=== PATIENT | male | born 2000 | race African-American/Black ===

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

== ENCOUNTER 2019-02-05 11:20 | Outpatient (RCR) | payer MEDICAID, OTHER, SELFPAY ==
[2019-01-13 15:55] LABS: Prothrombin Time Fingerstick 15.2 SEC (11.9-14.4)
[2019-02-05 11:31] LABS: Prothrombin Time Fingerstick 12.2 SEC (11.9-14.4)
== END 2019-02-05 13:00 | disposition home or self-care (01) ==
LOC: LAB 11:20
PROVIDERS: Family Provider Pediatrics; PCP Pediatrics; Referring Provider Pediatrics Pediatric Cardiology; Visit Provider Pediatrics Pediatric Cardiology
DX: Z95.4 Presence of other heart-valve replacement (principal)
CPT/HCPCS: 36416; 85610

== ENCOUNTER 2019-03-06 12:44 | Outpatient (RCR) | payer MEDICAID, OTHER, SELFPAY ==
[2019-02-12 12:15] LABS: Prothrombin Time Fingerstick 20.3 SEC (11.9-14.4)
[2019-03-06 13:10] LABS: Prothrombin Time Fingerstick 14.2 SEC (11.9-14.4)
== END 2019-03-06 13:00 | disposition home or self-care (01) ==
LOC: LAB 12:44
PROVIDERS: Family Provider Pediatrics; PCP Pediatrics; Referring Provider Pediatrics Pediatric Cardiology; Visit Provider Pediatrics Pediatric Cardiology
DX: Z95.4 Presence of other heart-valve replacement (principal)
CPT/HCPCS: 36416; 85610

== ENCOUNTER 2019-04-04 16:24 | Outpatient (RCR) | payer MEDICAID, OTHER, SELFPAY ==
[2019-03-14 15:06] LABS: Prothrombin Time Fingerstick 29.3 SEC (11.9-14.4)
[2019-04-04 16:36] LABS: Prothrombin Time Fingerstick 24.9 SEC (11.9-14.4)
== END 2019-04-09 16:00 | disposition home or self-care (01) ==
LOC: LAB 16:24
PROVIDERS: Family Provider Pediatrics; PCP Pediatrics; Referring Provider Pediatrics Pediatric Cardiology; Visit Provider Pediatrics Pediatric Cardiology
DX: Z95.4 Presence of other heart-valve replacement (principal)
CPT/HCPCS: 36416; 85610

== ENCOUNTER 2019-04-18 16:03 | Outpatient (RCR) | payer MEDICAID, OTHER, SELFPAY | END 2019-04-18 17:00 | disposition home or self-care (01) | LOC: LAB 16:03 | PROVIDERS: Family Provider Pediatrics; PCP Pediatrics; Referring Provider Pediatrics Pediatric Cardiology; Visit Provider Pediatrics Pediatric Cardiology | DX: Z95.4 Presence of other heart-valve replacement (principal) | CPT/HCPCS: 36416; 85610 ==

== ENCOUNTER 2019-05-30 16:30 | Outpatient (RCR) | payer MEDICAID, OTHER, SELFPAY ==
[2019-05-15 15:49] LABS: Prothrombin Time Fingerstick 21.6 SEC (11.9-14.4)
[2019-05-31 07:13] LABS: Prothrombin Time Fingerstick 21.1 SEC (11.9-14.4)
== END 2019-05-30 17:00 | disposition home or self-care (01) ==
LOC: LAB 16:30
PROVIDERS: Family Provider Pediatrics; PCP Pediatrics; Referring Provider Pediatrics Pediatric Cardiology; Visit Provider Pediatrics Pediatric Cardiology
DX: Z95.4 Presence of other heart-valve replacement (principal)
CPT/HCPCS: 36416; 85610

== ENCOUNTER 2019-07-07 16:15 | Outpatient (RCR) | payer MEDICAID, OTHER, SELFPAY ==
[2019-06-16 17:24] LABS: Prothrombin Time Fingerstick 23.3 SEC (11.9-14.4)
[2019-06-30 17:25] LABS: Prothrombin Time Fingerstick 29.9 SEC (11.9-14.4)
[2019-07-07 17:20] LABS: Prothrombin Time Fingerstick 25.6 SEC (11.9-14.4)
== END 2019-07-07 18:00 | disposition home or self-care (01) ==
LOC: LAB 16:15
PROVIDERS: Family Provider Pediatrics; PCP Pediatrics; Referring Provider Pediatrics Pediatric Cardiology; Visit Provider Pediatrics Pediatric Cardiology
DX: Z95.4 Presence of other heart-valve replacement (principal)
CPT/HCPCS: 36416; 85610

== ENCOUNTER 2019-08-04 16:25 | Outpatient (RCR) | payer MEDICAID, OTHER, SELFPAY ==
[2019-07-22 08:06] LABS: Prothrombin Time Fingerstick 20.3 SEC (11.9-14.4)
[2019-08-04 16:36] LABS: Prothrombin Time Fingerstick 15.3 SEC (11.9-14.4)
== END 2019-08-04 18:00 | disposition home or self-care (01) ==
LOC: LAB 16:25
PROVIDERS: Family Provider Pediatrics; PCP Pediatrics; Referring Provider Pediatrics Pediatric Cardiology; Visit Provider Pediatrics Pediatric Cardiology
DX: Z95.4 Presence of other heart-valve replacement (principal)
CPT/HCPCS: 36416; 85610

== ENCOUNTER 2019-08-11 15:06 | Outpatient (RCR) | payer MEDICAID, OTHER, SELFPAY ==
[2019-08-11 17:09] LABS: Prothrombin Time Fingerstick 20.5 SEC (11.9-14.4)
== END 2019-08-11 18:00 | disposition home or self-care (01) ==
LOC: LAB 15:06
PROVIDERS: Family Provider Pediatrics; PCP Pediatrics; Referring Provider Pediatrics Pediatric Cardiology; Visit Provider Pediatrics Pediatric Cardiology
DX: Z95.4 Presence of other heart-valve replacement (principal)
CPT/HCPCS: 36416; 85610

== ENCOUNTER 2019-10-01 15:31 | Outpatient (RCR) | payer MEDICAID, OTHER, SELFPAY ==
[2019-09-12 16:21] LABS: Prothrombin Time Fingerstick 27.2 SEC (11.9-14.4)
[2019-10-01 17:11] LABS: Prothrombin Time Fingerstick 19.1 SEC (11.9-14.4)
[2019-10-02 10:16] LABS: Prothrombin Time Fingerstick 19.1 SEC (11.9-14.4)
== END 2019-10-01 18:00 | disposition home or self-care (01) ==
LOC: LAB 15:31
PROVIDERS: Family Provider Pediatrics; PCP Pediatrics; Referring Provider Pediatrics Pediatric Cardiology; Visit Provider Pediatrics Pediatric Cardiology
DX: Z95.4 Presence of other heart-valve replacement (principal)
CPT/HCPCS: 36416; 85610

== ENCOUNTER 2019-10-29 16:06 | Outpatient (RCR) | payer MEDICAID, OTHER, SELFPAY ==
[2019-10-15 16:36] LABS: Prothrombin Time Fingerstick 18.5 SEC (11.9-14.4)
[2019-10-29 16:21] LABS: Prothrombin Time Fingerstick 27.5 SEC (11.9-14.4)
== END 2019-10-29 18:00 | disposition home or self-care (01) ==
LOC: LAB 16:06
PROVIDERS: Family Provider Pediatrics; PCP Pediatrics; Referring Provider Pediatrics Pediatric Cardiology; Visit Provider Pediatrics Pediatric Cardiology
DX: Z95.4 Presence of other heart-valve replacement (principal)
CPT/HCPCS: 36416; 85610

== ENCOUNTER 2019-11-28 15:36 | Outpatient (RCR) | payer MEDICAID, OTHER, SELFPAY ==
[2019-11-28 15:51] LABS: Prothrombin Time Fingerstick 22.3 SEC (11.9-14.4)
== END 2019-11-28 18:00 | disposition home or self-care (01) ==
LOC: LAB 15:36
PROVIDERS: Family Provider Pediatrics; PCP Pediatrics; Referring Provider Pediatrics Pediatric Cardiology; Visit Provider Pediatrics Pediatric Cardiology
DX: Z95.4 Presence of other heart-valve replacement (principal)
CPT/HCPCS: 36416; 85610

== ENCOUNTER 2020-01-30 16:05 | Outpatient (RCR) | payer MEDICAID, SELFPAY ==
[2020-01-30 17:11] LABS: Prothrombin Time Fingerstick 20.3 SEC (11.9-14.4)
== END 2020-01-30 18:00 | disposition home or self-care (01) ==
LOC: LAB 16:05
PROVIDERS: Family Provider Pediatrics; PCP Pediatrics; Referring Provider Pediatrics Pediatric Cardiology; Visit Provider Pediatrics Pediatric Cardiology
DX: Z95.4 Presence of other heart-valve replacement (principal)
CPT/HCPCS: 36416; 85610

== ENCOUNTER 2020-03-08 14:56 | Outpatient (RCR) | payer MEDICAID, OTHER, SELFPAY ==
[2020-03-09 09:06] LABS: Prothrombin Time Fingerstick 32.8 SEC (11.9-14.4)
== END 2020-03-08 18:00 | disposition home or self-care (01) ==
LOC: LAB 14:56
PROVIDERS: Family Provider Pediatrics; PCP Pediatrics; Referring Provider Pediatrics Pediatric Cardiology; Visit Provider Pediatrics Pediatric Cardiology
DX: Z95.4 Presence of other heart-valve replacement (principal)
CPT/HCPCS: 36416; 85610

== ENCOUNTER 2020-04-01 14:25 | Outpatient (RCR) | payer MEDICAID, OTHER, SELFPAY ==
[2020-03-15 15:10] LABS: Prothrombin Time Fingerstick 33.1 SEC (11.9-14.4)
[2020-03-22 14:31] LABS: Prothrombin Time Fingerstick 33.7 SEC (11.9-14.4)
[2020-04-01 14:56] LABS: Prothrombin Time Fingerstick 20.9 SEC (11.9-14.4)
== END 2020-04-01 18:00 | disposition home or self-care (01) ==
LOC: LAB 14:25
PROVIDERS: Family Provider Pediatrics; PCP Pediatrics; Referring Provider Pediatrics Pediatric Cardiology; Visit Provider Pediatrics Pediatric Cardiology
DX: Z95.4 Presence of other heart-valve replacement (principal)
CPT/HCPCS: 36416; 85610

== ENCOUNTER 2020-04-14 15:17 | Outpatient (RCR) | payer MEDICAID, SELFPAY ==
[2020-04-14 16:10] LABS: Prothrombin Time Fingerstick 24.7 SEC (11.9-14.4)
== END 2020-05-10 18:00 | disposition home or self-care (01) ==
LOC: LAB 15:17
PROVIDERS: Family Provider Pediatrics; PCP Pediatrics; Referring Provider Pediatrics Pediatric Cardiology; Visit Provider Pediatrics Pediatric Cardiology
DX: Z95.4 Presence of other heart-valve replacement (principal)
CPT/HCPCS: 36416; 85610

== ENCOUNTER 2020-06-02 15:59 | Outpatient (RCR) | payer MEDICAID, SELFPAY ==
[2020-05-11 10:06] LABS: Prothrombin Time Fingerstick 26.4 SEC (11.9-14.4)
[2020-06-02 16:11] LABS: Prothrombin Time Fingerstick 19.9 SEC (11.9-14.4)
== END 2020-06-02 18:00 | disposition home or self-care (01) ==
LOC: LAB 15:59
PROVIDERS: Family Provider Pediatrics; PCP Pediatrics; Referring Provider Pediatrics Pediatric Cardiology; Visit Provider Pediatrics Pediatric Cardiology
DX: Z95.4 Presence of other heart-valve replacement (principal)
CPT/HCPCS: 36416; 85610

== ENCOUNTER 2020-06-23 16:13 | Outpatient (RCR) | payer MEDICAID, SELFPAY ==
[2020-06-24 09:46] LABS: Prothrombin Time Fingerstick 27.1 SEC (11.9-14.4)
== END 2020-06-23 18:00 | disposition home or self-care (01) ==
LOC: LAB 16:13
PROVIDERS: Family Provider Pediatrics; PCP Pediatrics; Referring Provider Pediatrics Pediatric Cardiology; Visit Provider Pediatrics Pediatric Cardiology
DX: Z95.4 Presence of other heart-valve replacement (principal)
CPT/HCPCS: 36416; 85610

== ENCOUNTER 2020-07-27 16:15 | Outpatient (RCR) | payer MEDICAID, SELFPAY ==
[2020-07-27 17:11] LABS: Prothrombin Time Fingerstick 34.5 SEC (11.9-14.4)
== END 2020-07-27 18:00 | disposition home or self-care (01) ==
LOC: LAB 16:15
PROVIDERS: Family Provider Pediatrics; PCP Pediatrics; Referring Provider Pediatrics Pediatric Cardiology; Visit Provider Pediatrics Pediatric Cardiology
DX: Z95.4 Presence of other heart-valve replacement (principal)
CPT/HCPCS: 36416; 85610

== ENCOUNTER 2020-08-23 14:53 | Outpatient (RCR) | payer MEDICAID, SELFPAY ==
[2020-08-23 15:11] LABS: Prothrombin Time Fingerstick 23.6 SEC (11.9-14.4)
== END 2020-08-23 18:00 | disposition home or self-care (01) ==
LOC: LAB 14:53
PROVIDERS: Family Provider Pediatrics; PCP Pediatrics; Referring Provider Pediatrics Pediatric Cardiology; Visit Provider Pediatrics Pediatric Cardiology
DX: Z95.4 Presence of other heart-valve replacement (principal)
CPT/HCPCS: 36416; 85610

== ENCOUNTER 2020-09-29 14:17 | Outpatient (RCR) | payer MEDICAID, SELFPAY ==
[2020-09-14 12:45] LABS: Prothrombin Time Fingerstick 40.6 SEC (11.9-14.4)
[2020-09-23 15:21] LABS: Prothrombin Time Fingerstick 33.3 SEC (11.9-14.4)
[2020-09-29 14:31] LABS: Prothrombin Time Fingerstick 34.9 SEC (11.9-14.4)
== END 2020-09-29 18:00 | disposition home or self-care (01) ==
LOC: LAB 14:17
PROVIDERS: Family Provider Pediatrics; PCP Pediatrics; Referring Provider Pediatrics Pediatric Cardiology; Visit Provider Pediatrics Pediatric Cardiology
DX: Z95.4 Presence of other heart-valve replacement (principal)
CPT/HCPCS: 36415; 36416; 85610

== ENCOUNTER 2020-11-04 15:29 | Outpatient (RCR) | payer MEDICAID, SELFPAY ==
[2020-10-14 12:26] LABS: Prothrombin Time Fingerstick 22.4 SEC (11.9-14.4)
[2020-11-04 15:40] LABS: Prothrombin Time Fingerstick 30.2 SEC (11.9-14.4)
== END 2020-11-04 18:00 | disposition home or self-care (01) ==
LOC: LAB 15:29
PROVIDERS: Family Provider Pediatrics; PCP Family Medicine; Referring Provider Pediatrics Pediatric Cardiology; Visit Provider Pediatrics Pediatric Cardiology
DX: Z95.4 Presence of other heart-valve replacement (principal)
CPT/HCPCS: 36416; 85610

== ENCOUNTER 2020-12-07 14:21 | Outpatient (RCR) | payer MEDICAID, SELFPAY ==
[2020-11-11 15:45] LABS: Prothrombin Time Fingerstick 26.6 SEC (11.9-14.4)
[2020-12-07 14:40] LABS: INR Fingerstick 2.6; Prothrombin Time Fingerstick 29.2 SEC (11.9-14.4)
== END 2020-12-07 18:00 | disposition home or self-care (01) ==
LOC: LAB 14:21
PROVIDERS: Family Provider Pediatrics; PCP Family Medicine; Referring Provider Pediatrics Pediatric Cardiology; Visit Provider Pediatrics Pediatric Cardiology
DX: Z95.4 Presence of other heart-valve replacement (principal)
CPT/HCPCS: 36416; 85610

== ENCOUNTER 2020-12-23 15:27 | Outpatient (RCR) | payer MEDICAID, SELFPAY ==
[2020-12-27 11:51] LABS: INR Fingerstick 1.9; Prothrombin Time Fingerstick 21.7 SEC (11.9-14.4)
== END 2020-12-23 18:00 | disposition home or self-care (01) ==
LOC: LAB 15:27
PROVIDERS: Family Provider Pediatrics; PCP Family Medicine; Referring Provider Pediatrics Pediatric Cardiology; Visit Provider Pediatrics Pediatric Cardiology
DX: Z95.4 Presence of other heart-valve replacement (principal)
CPT/HCPCS: 36416; 85610

== ENCOUNTER 2021-01-14 14:31 | Outpatient (RCR) | payer MEDICAID, SELFPAY ==
[2021-01-14 14:45] LABS: INR Fingerstick 2.1; Prothrombin Time Fingerstick 24.2 SEC (11.9-14.4)
== END 2021-01-14 18:00 | disposition home or self-care (01) ==
LOC: LAB 14:31
PROVIDERS: Family Provider Pediatrics; PCP Family Medicine; Referring Provider Pediatrics Pediatric Cardiology; Visit Provider Pediatrics Pediatric Cardiology
DX: Z95.4 Presence of other heart-valve replacement (principal)
CPT/HCPCS: 36416; 85610

== ENCOUNTER 2021-03-03 15:44 | Outpatient (RCR) | payer MEDICAID, SELFPAY ==
[2021-02-10 15:36] LABS: INR Fingerstick 2.1; Prothrombin Time Fingerstick 23.5 SEC (11.9-14.4)
[2021-03-04 07:04] LABS: INR Fingerstick 2.9; Prothrombin Time Fingerstick 31.9 SEC (11.9-14.4)
== END 2021-03-03 18:00 | disposition home or self-care (01) ==
LOC: LAB 15:44
PROVIDERS: Pediatrics Pediatric Cardiology; Family Provider Pediatrics; PCP Family Medicine
DX: I35.0 Nonrheumatic aortic (valve) stenosis (principal)
CPT/HCPCS: 36416; 85610

== ENCOUNTER 2021-04-08 15:19 | Outpatient (RCR) | payer MEDICAID, SELFPAY ==
[2021-03-11 11:29] LABS: INR Fingerstick 2.4; Prothrombin Time Fingerstick 27.1 SEC (11.9-14.4)
[2021-03-25 09:12] LABS: Prothrombin Time Fingerstick 25.8 SEC (11.9-14.4)
[2021-03-25 09:13] LABS: INR Fingerstick 2.3
[2021-04-08 15:54] LABS: INR Fingerstick 2.5; Prothrombin Time Fingerstick 27.6 SEC (11.9-14.4)
== END 2021-04-08 18:00 | disposition home or self-care (01) ==
LOC: LAB 15:19
PROVIDERS: Family Provider Pediatrics; PCP Family Medicine
DX: I35.0 Nonrheumatic aortic (valve) stenosis (principal)
CPT/HCPCS: 36416; 85610

== ENCOUNTER 2021-05-04 16:13 | Outpatient (RCR) | payer MEDICAID, SELFPAY ==
[2021-04-26 14:21] LABS: INR Fingerstick 2.6; Prothrombin Time Fingerstick 29.5 SEC (11.9-14.4)
[2021-05-05 07:14] LABS: INR Fingerstick 2.8; Prothrombin Time Fingerstick 30.8 SEC (11.9-14.4)
== END 2021-05-04 18:00 | disposition home or self-care (01) ==
LOC: LAB 16:13
PROVIDERS: Family Provider Pediatrics; PCP Family Medicine
DX: I35.0 Nonrheumatic aortic (valve) stenosis (principal)
CPT/HCPCS: 36416; 85610

== ENCOUNTER 2021-06-03 15:34 | Outpatient (RCR) | payer MEDICAID, SELFPAY ==
[2021-05-10 20:07] VITALS: BMI 22.5
[2021-06-06 10:04] LABS: INR Fingerstick 2.3; Prothrombin Time Fingerstick 26.3 SEC (11.9-14.4)
== END 2021-06-03 18:00 | disposition home or self-care (01) ==
LOC: LAB 15:34
PROVIDERS: Family Provider Pediatrics; PCP Family Medicine
DX: I35.0 Nonrheumatic aortic (valve) stenosis (principal)
CPT/HCPCS: 36416; 85610

== ENCOUNTER 2021-07-04 11:20 | Emergency (ER) | payer MEDICAID, SELFPAY ==
--- NOTE | 2021-07-04 11:22 | EKG12_ITS ---
Test Reason : CP Blood Pressure : / mmHG Vent. Rate : 041 BPM Atrial Rate : 041 BPM P-R Int : 378 ms QRS Dur : 186 ms QT Int : 562 ms P-R-T Axes : 058 -50 021 degrees QTc Int : 463 ms Marked sinus bradycardia with 1st degree A-V block Right bundle branch block Left anterior fascicular block Bifascicular block Consider Left ventricular hypertrophy T wave abnormality, consider lateral ischemia Abnormal ECG Confirmed by DEEPTHI MELÉNDEZ, LENY ([id number]), content editor ANGELIKA WILLSON ([id number]) on 07/06/2021 9:01:37 AM Referred By: AMMON/MINGO Confirmed By:LENY LACEY MD
[2021-07-04 11:24] VITALS: BP 136/61; PULSE 33; RESP 18; TEMP 36.7; O2SAT 99; BMI 25.7
--- NOTE | 2021-07-04 11:31 | ED.RN ---
pt. resting in bed. heart rate drops to 32. pt. states his heart defib is going to go off. goes to vta. pulls initail iv out with shock. back down to 50. dr. duran to room
--- NOTE | 2021-07-04 11:33 | EKG12_ITS ---
Test Reason : ICD FIRED Blood Pressure : / mmHG Vent. Rate : 046 BPM Atrial Rate : 046 BPM P-R Int : 388 ms QRS Dur : 188 ms QT Int : 534 ms P-R-T Axes : 066 -51 079 degrees QTc Int : 467 ms Sinus bradycardia with 1st degree A-V block Right bundle branch block Left anterior fascicular block Bifascicular block Consider Left ventricular hypertrophy with repolarization abnormality Abnormal ECG Confirmed by DEEPTHI MELÉNDEZ, LENY ([id number]), editor department ANGELIKA WILLSON ([id number]) on 07/06/2021 9:02:09 AM Referred By: AMMON/MINGO Confirmed By:LENY LACEY MD
[2021-07-04 11:34] VITALS: BP 136/61; PULSE 46; RESP 16; O2SAT 98
--- NOTE | 2021-07-04 11:41 | RAD_ITS ---
STUDY: X-RAY CHEST REASON FOR EXAM: Male, 20 years old. Chest pain TECHNIQUE: Single AP portable view of the chest. COMPARISON: Comparison is made with prior study dated 11/21/2018. FINDINGS: EKG electrodes are seen. The lungs are clear and expanded. There is no demonstrated pleural abnormality. There is borderline cardiomegaly. A left-sided unipolar pacemaker is seen. Normal mediastinum and tori. Normal visualized pulmonary arteries. Normal visualized aortic arch and descending thoracic aorta. Normal visualized thoracic spine. Normal visualized ribs, clavicles, and shoulders. There is no demonstrated abnormality of the visualized soft tissue structures of the upper abdomen. RAD/Chest 1 View (Portable) IMPRESSION: Stable examination. Electronically Signed: Raheem Aguilar MD at 12:41 EDT , Service support ,
[2021-07-04] MEDS: 0.9% Normal Saline 1,000 ML 999 ML IV (11:44)
--- NOTE | 2021-07-04 11:46 | ED.RN ---
pt. heart rate drops to 31, defib goes off.
[2021-07-04 11:53] VITALS: BP 131/69; PULSE 79; RESP 18; O2SAT 100
[2021-07-04 11:53] LABS: Absolute Lymphocyte Count 1.52 X10^3/uL (0.83-4.51); Absolute Neutrophil Count 4.9 X10^3/uL (2.0-7.7); Basophil# 0.06 X10^3/uL; Basophil% 0.8 % (0-1); Eosinophil# 0.29 X10^3/uL; Eosinophils% 4.1 % (0-5); Hemoglobin 15.4 g/dL (13.0-16.5); Lymphocyte # 1.52 X10^3/ul (0.83-4.51); Lymphocyte % 21.2 % (19-41); Mean Corp Hgb Conc 33.5 g/dL (32-36); Mean Corpuscular Hgb 31.4 pg (27.0-32.0); Mean Corpuscular Volume 93.7 fL (80-94); Mean Platelet Vol. 12.2 fl (6.2-12.0); Monocyte# 0.41 X10^3/uL; Monocyte% 5.7 % (0-10); NRBC Flagged by Analyzer 0 % (0-5); Neutrophil # 4.85 X10^3/uL (2.7-7.7); Neutrophil % 67.8 % (47-70); Platelet Count 154 K/mm3 (150-450); RBC Distribution Width CV 12.8 % (11.6-14.6); RBC Distribution Width SD 44.4 fl (35.1-43.9); Red Blood Count 4.91 M/mm3 (4.6-6.2); White Blood Count 7.2 K/mm3 (4.4-11.0)
[2021-07-04] MEDS: Magnesium Sulfate 2 GM in Syringe 1 EACH IV (12:00)
--- NOTE | 2021-07-04 12:02 | ED.RN ---
PT CONTINUES TO HAVE DROPS IN HIS HEART RATE. PT CONTINUES TO COUGH AND USE VAGAL MANEUVERS, WHEN HE FEELS LIKE RHYTHM IS CHANGING. VAGAL RESPONSE CONTINUES TO CHANGE HEART RHYTHM PREVENTING DEFIBRILLATION.
[2021-07-04 12:07] LABS: International Normalized Ratio 2.9; Prothrombin Time (Protime)PT. 29.3 SECONDS (11.7-14.9)
[2021-07-04 12:08] VITALS: BP 126/60; PULSE 48; RESP 18; O2SAT 96
[2021-07-04 12:08] LABS: Anion Gap 7 (5-15); BUN 10 mg/dL (7-18); BUN/Creat Ratio 9.4 RATIO (10-20); Calcium,Total 9.1 mg/dL (8.5-10.1); Chloride 106 mmol/L (98-107); Creatinine, Serum 1.06 mg/dL (0.70-1.30); EST Glomerular Filtration Rate 93 mL/min (>60); Est Glom Filt Rate - Afr Amer 113 mL/min (>60); Estimated Creatinine Clearance 103.06 ml/min; Glucose 111 mg/dL (74-106); Magnesium 1.8 mg/dL (1.6-2.6); Partial Thromboplast Time 41.7 Seconds (24.1-36.2); Potassium 3.7 mmol/L (3.5-5.1); Sodium Level 142 mmol/L (136-145); Troponin-I HS 211 pg/mL (3.0-78.0)
--- NOTE | 2021-07-04 12:12 | EX.ED.DYSGE1 ---
HPI History of Present Illness Chief Complaint: Chest Pain Narrative Narrative: Patient is a 20-year-old male with past medical history of truncus arteriosus who has past surgical history of a mechanical mitral valve as well as pacemaker/defibrillator placement. Patient states he was started on flecainide last Sunday. He states last night around midnight he felt like he was shocked 2 times. He reports he was able to make it through the night but this morning has had recurrent shocks at home and secondary to this called EMS to bring him in for evaluation. He denies any nausea vomiting or diarrhea and states the only new medication is the flecainide [facility] Medical History Artificial cardiac pacemaker Cardiac defibrillator in place Truncus arteriosus Home Medications warfarin [Coumadin (PBKC)] 6 mg PO GRANT 08/29/17 [History Last Taken Unknown] albuterol sulfate [Ventolin Hfa (SP)] 1 - 2 puff INHALATION Q4H PRN PRN 11/21/18 [History Last Taken Unknown] hydrochlorothiazide 12.5 mg PO DAILY 11/21/18 [History Last Taken Unknown] melatonin 3 mg PO QHS PRN PRN 11/21/18 [History Last Taken Unknown] warfarin [Coumadin (PBKC)] 7 mg PO MOTUWETHFRSA 11/21/18 [History Last Taken Unknown] flecainide 100 mg PO BID 07/04/21 [History Last Taken Unknown] Allergy/AdvReac Type Severity Reaction Status Date / Time acetaminophen [From Percocet] AdvReac BLURRED Verified 07/04/21 11:29 VISION AND MILKY DRAINAGE FROM EYES oxycodone HCl [From Percocet] AdvReac BLURRED Verified 07/04/21 11:29 VISION AND MILKY DRAINAGE FROM EYES Surgical History (Updated 07/04/21 @ 11:38 by Gen Goodson) H/O aortic valve replacement Social History (System 06/23/20 @ 16:13 by Leti Pike) Smoking Status: Never smoker ROS ROS ED Constitutional Constitutional ED: Denies chills or fever(s) ENT ENT ED: Denies sore throat Cardiovascular Cardiovascular: Reports chest pain and palpitations Respiratory/Chest Respiratory/Chest: Denies cough or dyspnea Gastrointestinal Gastrointestinal: Denies abdominal pain, diarrhea, nausea or vomiting Genitourinary Genitourinary ED: Denies dysuria Musculoskeletal Musculoskeletal: Denies myalgias Integumentary Denies rash Neurologic Neurologic: Denies headache(s) Hematologic/Lymphatic Hematologic/Lymphatic: Reports easy bleeding and easy bruising EXAM Physical Exam Const Vital Signs: 07/04/21 11:24 07/04/21 11:34 07/04/21 11:53 Temperature 98.0 F Temperature Source Oral Pulse Rate 33 L 46 L 79 Respiratory Rate 18 16 18 Blood Pressure 136/61 H 136/61 H 131/69 H Blood Pressure Mean 86 86 89 Pulse Ox 99 98 100 Oxygen Delivery Method Room Air Nasal Cannula Nasal Cannula Oxygen Flow Rate (L/min) 2 4 07/04/21 12:08 Temperature Temperature Source Pulse Rate 48 L Respiratory Rate 18 Blood Pressure 126/60 H Blood Pressure Mean 82 Pulse Ox 96 Oxygen Delivery Method Nasal Cannula Oxygen Flow Rate (L/min) 6 Positive well nourished and well developed General Appearance ED: well developed HEENT Reports moist mucous membranes Eyes PERRL and EOMs intact bilaterally Neck supple and no JVD Chest Wall palpation of chest normal Resp normal respiratory effort and clear to auscultation bilaterally Cardio regular rhythm Rate: other Other Details: Bradycardic rate with regular rhythm GI normal to inspection, nondistended, normoactive bowel sounds, non-tender, non-distended and no masses GI Narrative: No voluntary guarding or rigidity no pulsatile mass Auscultation: normoactive bowel sounds Palpation: soft Extremity normal to inspection Neuro oriented x3 and CN's II-XII intact bilaterally Sensorium / Orientation: alert Motor Exam: strength 5/5 throughout Psych mental status grossly normal Skin no rashes or lesions noted MDM MDM MDM Narrative Medical decision making narrative: Patient presented to the ER with complaint of his ICD discharging. Upon arrival he is bradycardic at approximately 45 but otherwise awake and alert. While on the monitor he then progressed to 1/3 degree heart block and then developed ventricular tachycardia/torsades. He then had his defibrillator fire and he returned to sinus bradycardia. The patient was given 1 L of fluid and 2 g of magnesium were given secondary to this. The patient had the symptoms happen 3 times while in the ER. Therefore at this time with the recurrent cardiac dysrhythmia as well as ICD firing he will need to be transferred to [facility] where they manage his cardiac device. The transfer line was contacted and they do agree to accept the patient at this time. Based on the recurrent nature of his dysrhythmia and the risk that he could progress to an unstable rhythm which is life-threatening he will be flown to their facility. This care was discussed with the patient and his family and they are agreeable to this plan of care Lab Data Attestation: I reviewed the patient's lab results. Labs: Laboratory Results - last 24 hr 07/04/21 07/04/21 07/04/21 11:33 11:33 11:33 WBC 7.2 RBC 4.91 Hgb 15.4 Hct 46.0 MCV 93.7 MCH 31.4 MCHC 33.5 RDW Std Deviation 44.4 H RDW Coeff of Louis 12.8 Plt Count 154 MPV 12.2 H Immature Gran % (Auto) 0.400 Neut % (Auto) 67.8 Lymph % (Auto) 21.2 Mcpherson % (Auto) 5.7 Eos % (Auto) 4.1 Baso % (Auto) 0.8 Absolute Neuts (auto) 4.9 Absolute Lymphs (auto) 1.52 Nucleated RBC % 0 PT 29.3 H INR 2.9 APTT 41.7 H Sodium 142 Potassium 3.7 Chloride 106 Carbon Dioxide 29.0 Anion Gap 7 BUN 10 Creatinine 1.06 Estim Creat Clear Calc 103.06 Est GFR (MDRD) Af Amer 113 Est GFR (MDRD) Non-Af 93 BUN/Creatinine Ratio 9.4 L Glucose 111 H Calcium 9.1 Magnesium 1.8 Troponin I High Sens 211 H* Critical Care Time Critical Care Time: Yes Critical care time (excluding procedures): - (Please note critical care time of 33 minutes) Discharge Plan Triage Chief Complaint: Chest Pain ED Provider: Ej Alonso Dx/Rx/DC Orders Clinical Impression: Paroxysmal ventricular tachycardia, ICD (implantable cardioverter-defibrillator) discharge Prescriptions: No Action warfarin [Jantoven] 6 MG tablet 6 mg PO GRANT RF: 0 melatonin 3 MG tablet 3 mg PO QHS PRN PRN (Reason: Insomnia) RF: 0 warfarin [Jantoven] 6 MG tablet 7 mg PO MOTUWETHFRSA RF: 0 albuterol sulfate [Ventolin HFA] 1 INHALER inhaler 1 - 2 puff inhalation Q4H PRN PRN (Reason: Sob &/Or Wheezing) RF: 0 hydrochlorothiazide 12.5 MG tablet 12.5 mg PO DAILY RF: 0 flecainide 100 mg tablet 100 mg PO BID RF: 0 Primary Care Provider: Colby Urbano Referrals: Colby Urbano MD [Primary Care Provider] - Disposition [facility] Discharge Location: [facility]
--- NOTE | 2021-07-04 12:18 | ED.RN ---
[facility]ero arrives to transport
[2021-07-04 12:20] VITALS: BP 106/75; PULSE 56; RESP 20; O2SAT 100
--- NOTE | 2021-07-04 12:34 | ED.RN ---
report called to [facility]. they state they will wait for [facility] report. state they will call back if not
== END 2021-07-04 12:41 | disposition designated cancer center or children's hospital (05) ==
PROVIDERS: Emergency Provider Emergency Medicine; PCP Family Medicine
DX: I47.2 Ventricular tachycardia (principal); Z95.810 Presence of automatic (implantable) cardiac defibrillator; Z95.2 Presence of prosthetic heart valve; Z79.01 Long term (current) use of anticoagulants; Z79.899 Other long term (current) drug therapy
CPT/HCPCS: 71045; 80048; 83735; 84484; 85025; 85610; 85730; 87426; 93005; 99285; J3475

== ENCOUNTER 2021-07-08 14:47 | Outpatient (RCR) | payer MEDICAID, SELFPAY ==
[2021-06-17 15:33] VITALS: BMI 22.5
[2021-06-21 07:51] LABS: INR Fingerstick 2.9; Prothrombin Time Fingerstick 31.9 SEC (11.9-14.4)
[2021-06-23 07:18] LABS: INR Fingerstick 2.2; Prothrombin Time Fingerstick 25.3 SEC (11.9-14.4)
[2021-07-12 10:43] LABS: INR Fingerstick 2.4; Prothrombin Time Fingerstick 26.5 SEC (11.9-14.4)
== END 2021-07-10 03:41 | disposition home or self-care (01) ==
LOC: LAB 14:47
PROVIDERS: Family Provider Pediatrics; PCP Family Medicine
DX: I35.0 Nonrheumatic aortic (valve) stenosis (principal)
CPT/HCPCS: 36416; 85610

== ENCOUNTER 2021-07-08 20:48 | Emergency (ER) | payer MEDICAID, SELFPAY ==
[2021-07-08 20:51] VITALS: BP 128/58; PULSE 77; RESP 18; TEMP 36.7; O2SAT 100; BMI 25.2
--- NOTE | 2021-07-08 20:55 | EKG12_ITS ---
Test Reason : PALPS Blood Pressure : / mmHG Vent. Rate : 079 BPM Atrial Rate : 090 BPM P-R Int : 000 ms QRS Dur : 168 ms QT Int : 454 ms P-R-T Axes : 061 -77 024 degrees QTc Int : 520 ms Ventricular-paced rhythm with Fusion complexes Abnormal ECG Confirmed by DEEPTHI MELÉNDEZ, LENY ([id number]), general expeditor ANGELIKA WILLSON ([id number]) on 07/12/2021 9:21:50 AM Referred By: MONICA HUERTA Confirmed By:LENY LACEY MD
--- NOTE | 2021-07-08 21:28 | RAD_ITS ---
INDICATION: chest pain EXAMINATION/TECHNIQUE: X-RAY - XR Chest 1 View COMPARISON: 07/04/2021. FINDINGS: The lungs are clear. The heart is mildly enlarged. Left-sided cardiac device. No pleural effusion or pneumothorax. No acute osseous abnormalities. RAD/Chest 1 View (Portable) IMPRESSION: No acute radiographic abnormalities. Electronically Signed: Dexter Joel MD at 22:01 EDT Tel , Service support ,
[2021-07-08] MEDS: LORazepam 2 MG/ML Syringe 1 MG IV (21:35)
[2021-07-08 21:48] LABS: Absolute Lymphocyte Count 2.99 X10^3/uL (0.83-4.51); Absolute Neutrophil Count 6.2 X10^3/uL (2.0-7.7); Eosinophil# 0.39 X10^3/uL; Eosinophils% 3.8 % (0-5); Hematocrit 52.7 % (40-54); Hemoglobin 17.9 g/dL (13.0-16.5); Lymphocyte # 2.99 X10^3/ul (0.83-4.51); Lymphocyte % 28.9 % (19-41); Mean Corpuscular Hgb 31.6 pg (27.0-32.0); Mean Corpuscular Volume 93.1 fL (80-94); Mean Platelet Vol. 11.8 fl (6.2-12.0); Monocyte# 0.59 X10^3/uL; Monocyte% 5.7 % (0-10); NRBC Flagged by Analyzer 0 % (0-5); Neutrophil # 6.22 X10^3/uL (2.7-7.7); Neutrophil % 60.2 % (47-70); Platelet Count 263 K/mm3 (150-450); RBC Distribution Width CV 12.6 % (11.6-14.6); RBC Distribution Width SD 43.2 fl (35.1-43.9); Red Blood Count 5.66 M/mm3 (4.6-6.2); White Blood Count 10.3 K/mm3 (4.4-11.0)
[2021-07-08 21:57] LABS: International Normalized Ratio 2.2; Prothrombin Time (Protime)PT. 23.5 SECONDS (11.7-14.9)
[2021-07-08 21:59] LABS: Partial Thromboplast Time 38.3 Seconds (24.1-36.2)
[2021-07-08 22:18] VITALS: BP 111/50; PULSE 70; RESP 19; O2SAT 97
[2021-07-08 22:31] LABS: Anion Gap 11 (5-15); BUN 14 mg/dL (7-18); BUN/Creat Ratio 11.6 RATIO (10-20); Calcium,Total 10.6 mg/dL (8.5-10.1); Chloride 102 mmol/L (98-107); Creatinine, Serum 1.21 mg/dL (0.70-1.30); EST Glomerular Filtration Rate 80 mL/min (>60); Est Glom Filt Rate - Afr Amer 97 mL/min (>60); Estimated Creatinine Clearance 90.29 ml/min; Glucose 123 mg/dL (74-106); Magnesium 1.8 mg/dL (1.6-2.6); Potassium 3.7 mmol/L (3.5-5.1); Sodium Level 138 mmol/L (136-145); Troponin-I HS 385 pg/mL (3.0-78.0)
[2021-07-08 23:45] VITALS: BP 105/66; PULSE 69; RESP 19; O2SAT 98
[2021-07-08 23:46] LABS: Troponin-I HS 294 pg/mL (3.0-78.0)
--- NOTE | 2021-07-08 23:54 | EDS_ITS ---
HPI History of Present Illness Chief Complaint: Chest Pain Narrative Narrative: Patient is a 20-year-old male with past medical history of truncus arteriosus as well as paroxysmal ventricular tachycardia leading to pacemaker placement with defibrillator. He was seen on July 04 for malfunction of his pacemaker and recurrent ICD firing. At that time he was transferred [facility] where his cardiac care is performed. He states they adjusted his pacemaker/defibrillator and he has now been home for the last day. He reports that he has felt palpitations and sensation like he is going to get shocked but without the ICD firing. He states this was concerning to him and therefore he comes in for evaluation [facility] Medical History Artificial cardiac pacemaker Cardiac defibrillator in place Truncus arteriosus Home Medications warfarin [Coumadin (PBKC)] 6 mg PO GRANT 08/29/17 [History Last Taken Unknown] albuterol sulfate [Ventolin Hfa (SP)] 1 - 2 puff INHALATION Q4H PRN PRN 11/21/18 [History Last Taken Unknown] hydrochlorothiazide 12.5 mg PO DAILY 11/21/18 [History Last Taken Unknown] warfarin [Coumadin (PBKC)] 7 mg PO MOTUWETHFRSA 11/21/18 [History Last Taken Unknown] lorazepam [Ativan] 0.5 mg PO BID PRN 5 Days #10 tab 07/08/21 [Rx Last Taken Unknown] metoprolol tartrate 50 mg BID 07/08/21 [History Last Taken Unknown] Allergy/AdvReac Type Severity Reaction Status Date / Time acetaminophen [From Percocet] AdvReac BLURRED Verified 07/04/21 11:29 VISION AND MILKY DRAINAGE FROM EYES oxycodone HCl [From Percocet] AdvReac BLURRED Verified 07/04/21 11:29 VISION AND MILKY DRAINAGE FROM EYES Surgical History (Updated 07/04/21 @ 11:38 by Gen Goodson) H/O aortic valve replacement Social History (System 06/23/20 @ 16:13 by Leti Pike) Smoking Status: Never smoker ROS ROS ED Constitutional Constitutional ED: Denies chills or fever(s) ENT ENT ED: Denies sore throat Cardiovascular Cardiovascular: Reports chest pain and palpitations Respiratory/Chest Respiratory/Chest: Denies cough or dyspnea Gastrointestinal Gastrointestinal: Denies abdominal pain, diarrhea, nausea or vomiting Genitourinary Genitourinary ED: Denies dysuria Musculoskeletal Musculoskeletal: Denies myalgias Integumentary Denies rash Neurologic Neurologic: Denies headache(s) Psychiatric Psychiatric: Reports anxiety Hematologic/Lymphatic Hematologic/Lymphatic: Reports easy bleeding and easy bruising EXAM Physical Exam Const Vital Signs: 07/08/21 20:51 07/08/21 20:55 07/08/21 22:18 Temperature 98.1 F Temperature Source Temporal Pulse Rate 77 70 Respiratory Rate 18 19 H Respiratory Effort Normal Blood Pressure 128/58 H 111/50 L Blood Pressure Mean 81 70 Pulse Ox 100 97 Oxygen Delivery Method Room Air Room Air 07/08/21 23:45 Temperature Temperature Source Pulse Rate 69 Respiratory Rate 19 H Respiratory Effort Blood Pressure 105/66 Blood Pressure Mean 79 Pulse Ox 98 Oxygen Delivery Method Room Air Positive well nourished and well developed General Appearance ED: well developed Eyes PERRL and EOMs intact bilaterally Neck supple and no JVD Chest Wall palpation of chest normal Resp normal respiratory effort and clear to auscultation bilaterally Cardio regular rate and regular rhythm Rate: other GI normal to inspection, nondistended, normoactive bowel sounds, non-tender, non- distended and no masses Auscultation: normoactive bowel sounds Palpation: soft Extremity normal to inspection Extremity Narrative: No asymmetric edema no pitting edema negative Homans' sign bilaterally Neuro oriented x3 and CN's II-XII intact bilaterally Sensorium / Orientation: alert Psych Mood & Affect: anxious Skin no rashes or lesions noted MDM MDM MDM Narrative Medical decision making narrative: Patient presented to the ER in no acute distress with a paced rhythm. EKG and monitoring did show the pacemaker was performing its function normally. With the patient's recent history elected to perform basic cardiac labs as well as a chest x-ray. Chest x-ray revealed no fracture to the pacemaker/defibrillator lead or obvious signs of pneumonia or pneumothorax. His initial troponin was elevated at 385 but otherwise his labs were not clinically significant. I discussed the case with cardiology on-call at [facility] and they recommend a repeat troponin at this time. He delta troponin is downtrending and therefore cardiology feels he is safe for discharge and can follow-up on an outpatient basis. Patient was instructed of this plan and states he is agreeable and therefore we discharged at this time Lab Data Attestation: I reviewed the patient's lab results. Labs: Laboratory Results - last 24 hr 07/08/21 07/08/21 07/08/21 21:13 21:13 21:13 WBC 10.3 RBC 5.66 Hgb 17.9 H Hct 52.7 MCV 93.1 MCH 31.6 MCHC 34.0 RDW Std Deviation 43.2 RDW Coeff of Louis 12.6 Plt Count 263 MPV 11.8 Immature Gran % (Auto) 0.400 Neut % (Auto) 60.2 Lymph % (Auto) 28.9 Moffat % (Auto) 5.7 Eos % (Auto) 3.8 Baso % (Auto) 1.0 Absolute Neuts (auto) 6.2 Absolute Lymphs (auto) 2.99 Nucleated RBC % 0 PT 23.5 H INR 2.2 APTT 38.3 H Sodium 138 Potassium 3.7 Chloride 102 Carbon Dioxide 25.0 Anion Gap 11 BUN 14 Creatinine 1.21 Estim Creat Clear Calc 90.29 Est GFR (MDRD) Af Amer 97 Est GFR (MDRD) Non-Af 80 BUN/Creatinine Ratio 11.6 Glucose 123 H Calcium 10.6 H Magnesium 1.8 Troponin I High Sens 385 H* 07/08/21 23:18 WBC RBC Hgb Hct MCV MCH MCHC RDW Std Deviation RDW Coeff of Louis Plt Count MPV Immature Gran % (Auto) Neut % (Auto) Lymph % (Auto) Moffat % (Auto) Eos % (Auto) Baso % (Auto) Absolute Neuts (auto) Absolute Lymphs (auto) Nucleated RBC % PT INR APTT Sodium Potassium Chloride Carbon Dioxide Anion Gap BUN Creatinine Estim Creat Clear Calc Est GFR (MDRD) Af Amer Est GFR (MDRD) Non-Af BUN/Creatinine Ratio Glucose Calcium Magnesium Troponin I High Sens 294 H* Radiography Diagnostic Testing: Clinical Impression(s) from Imaging Studies Chest X-Ray 07/08/21 21:28 IMPRESSION: No acute radiographic abnormalities. Electronically Signed: Dexter Joel MD at 22:01 EDT Tel , Service support , Discharge Plan Triage Chief Complaint: Chest Pain ED Provider: Ej Alonso Dx/Rx/DC Orders Clinical Impression: Paroxysmal ventricular tachycardia, Anxiety Instructions: Your Heart's Electrical System, ED Anxiety Reaction Prescriptions: New lorazepam [Ativan] 0.5 mg tablet 0.5 mg PO BID PRN (Reason: anxiety) 5 Days Qty: 10 RF: 0 No Action warfarin [Jantoven] 6 MG tablet 6 mg PO GRANT RF: 0 warfarin [Jantoven] 6 MG tablet 7 mg PO MOTUWETHFRSA RF: 0 albuterol sulfate [Ventolin HFA] 1 INHALER inhaler 1 - 2 puff inhalation Q4H PRN PRN (Reason: Sob &/Or Wheezing) RF: 0 hydrochlorothiazide 12.5 MG tablet 12.5 mg PO DAILY RF: 0 metoprolol tartrate 50 mg tablet 50 mg BID RF: 0 Primary Care Provider: Colby Urbano Referrals: Colby Urbano MD [Primary Care Provider] - Disposition Disposition: Home, Self Care
[2021-07-09 00:03] VITALS: BP 120/58; PULSE 72; RESP 17; O2SAT 97
== END 2021-07-09 00:05 | disposition home or self-care (01) ==
PROVIDERS: Emergency Provider Emergency Medicine; PCP Family Medicine
DX: I47.2 Ventricular tachycardia (principal); F41.9 Anxiety disorder, unspecified; Q20.0 Common arterial trunk; I35.0 Nonrheumatic aortic (valve) stenosis; Z79.01 Long term (current) use of anticoagulants; Z79.899 Other long term (current) drug therapy; Z95.810 Presence of automatic (implantable) cardiac defibrillator
CPT/HCPCS: 36416; 71045; 80048; 83735; 84484; 85025; 85610; 85730; 93005; 96374; 99285; A4216

== ENCOUNTER 2021-08-05 15:48 | Outpatient (RCR) | payer MEDICAID, SELFPAY ==
[2021-07-10 03:41] VITALS: BMI 22.5
[2021-07-15 07:24] LABS: INR Fingerstick 1.5; Prothrombin Time Fingerstick 17.8 SEC (11.9-14.4)
[2021-07-27 07:33] LABS: INR Fingerstick 2.1; Prothrombin Time Fingerstick 23.4 SEC (11.9-14.4)
[2021-08-06 07:03] LABS: Prothrombin Time Fingerstick 23.1 SEC (11.9-14.4)
== END 2021-08-09 18:00 | disposition home or self-care (01) ==
LOC: LAB 15:48
PROVIDERS: Family Provider Pediatrics; PCP Family Medicine
DX: I35.0 Nonrheumatic aortic (valve) stenosis (principal)
CPT/HCPCS: 36416; 85610

== ENCOUNTER 2021-09-08 15:59 | Outpatient (RCR) | payer MEDICAID, SELFPAY ==
[2021-08-10 02:19] VITALS: BMI 22.5
[2021-08-27 11:05] LABS: INR Fingerstick 1.6
[2021-09-10 07:04] LABS: Prothrombin Time Fingerstick 18.3 SEC (11.9-14.4)
[2021-09-10 07:05] LABS: INR Fingerstick 1.6
== END 2021-09-10 18:00 | disposition home or self-care (01) ==
LOC: LAB 15:59
PROVIDERS: Family Provider Pediatrics; PCP Family Medicine
DX: I35.0 Nonrheumatic aortic (valve) stenosis (principal)
CPT/HCPCS: 36416; 85610

== ENCOUNTER 2021-10-05 15:15 | Outpatient (RCR) | payer MEDICAID, SELFPAY ==
[2021-09-11 04:07] VITALS: BMI 22.5
[2021-09-23 07:21] LABS: INR Fingerstick 1.8
[2021-10-06 07:24] LABS: INR Fingerstick 1.8; Prothrombin Time Fingerstick 21.7 SEC (11.9-14.4)
== END 2021-10-10 18:00 | disposition home or self-care (01) ==
LOC: LAB 15:15
PROVIDERS: Family Provider Pediatrics; PCP Family Medicine
DX: I35.0 Nonrheumatic aortic (valve) stenosis (principal)
CPT/HCPCS: 36416; 85610

== ENCOUNTER → 2021-10-17 15:54 | Outpatient (CLI) | payer MEDICAID, SELFPAY ==
[2021-10-17 16:57] LABS: Hematocrit 46.5 % (40-54); Hemoglobin 15.1 g/dL (13.0-16.5); Mean Corp Hgb Conc 32.5 g/dL (32-36); Mean Corpuscular Hgb 31.1 pg (27.0-32.0); Mean Corpuscular Volume 95.9 fL (80-94); Mean Platelet Vol. 11.8 fl (6.2-12.0); Platelet Count 182 K/mm3 (150-450); RBC Distribution Width CV 12.5 % (11.6-14.6); RBC Distribution Width SD 44.5 fl (35.1-43.9); Red Blood Count 4.85 M/mm3 (4.6-6.2)
[2021-10-17 17:37] LABS: Albumin, Serum 3.7 g/dL (3.2-5.0); BUN 14 mg/dL (7-18); BUN/Creat Ratio 17.9 RATIO (10-20); Calcium,Total 9.1 mg/dL (8.5-10.1); Chloride 108 mmol/L (98-107); Creatinine, Serum 0.78 mg/dL (0.70-1.30); EST Glomerular Filtration Rate 132 mL/min (>60); Est Glom Filt Rate - Afr Amer 159 mL/min (>60); Glucose 79 mg/dL (74-106); Phosphorus 3.2 mg/dL (2.5-4.9); Potassium 4.3 mmol/L (3.5-5.1); Sodium Level 138 mmol/L (136-145)
== END ==
PROVIDERS: PCP Family Medicine
DX: N18.1 Chronic kidney disease, stage 1 (principal)
CPT/HCPCS: 36415; 80069; 85027

== ENCOUNTER 2021-10-18 15:18 | Outpatient (CLI) | payer MEDICAID, SELFPAY ==
[2021-10-18 17:23] LABS: Protein, Urine (Random) < 6.0 mg/dL (<11.9)
[2021-10-19 12:38] LABS: Microalbumin,Random Urine 11.1 mg/L (NO RANGE EST.)
== END 2021-10-18 23:59 | disposition home or self-care (01) ==
LOC: LAB 15:20
PROVIDERS: PCP Family Medicine; Visit Provider Pediatrics Pediatric Nephrology
DX: N18.1 Chronic kidney disease, stage 1 (principal)
CPT/HCPCS: 82043; 82570; 84156

== ENCOUNTER 2021-11-07 14:17 | Outpatient (RCR) | payer MEDICAID, SELFPAY ==
[2021-10-10 22:54] VITALS: BMI 22.5
[2021-10-20 16:41] LABS: INR Fingerstick 2.1; Prothrombin Time Fingerstick 24.2 SEC (11.9-14.4)
== END 2021-11-07 18:00 | disposition home or self-care (01) ==
LOC: LAB 14:17
PROVIDERS: Family Provider Pediatrics; PCP Family Medicine
DX: I35.0 Nonrheumatic aortic (valve) stenosis (principal)
CPT/HCPCS: 36416; 85610

== ENCOUNTER 2021-11-29 16:06 | Outpatient (RCR) | payer MEDICAID, SELFPAY ==
[2021-11-08 09:46] VITALS: BMI 22.5
[2021-11-23 16:25] LABS: INR Fingerstick 1.6; Prothrombin Time Fingerstick 19.1 SEC (11.7-14.9)
[2021-11-30 07:03] LABS: INR Fingerstick 1.8; Prothrombin Time Fingerstick 21.8 SEC (11.7-14.9)
== END 2021-12-08 18:00 | disposition home or self-care (01) ==
LOC: LAB 16:06
PROVIDERS: Family Provider Pediatrics; PCP Family Medicine
DX: I35.0 Nonrheumatic aortic (valve) stenosis (principal)
CPT/HCPCS: 36416; 85610

== ENCOUNTER 2022-01-05 15:54 | Outpatient (RCR) | payer MEDICAID, SELFPAY ==
[2021-12-09 01:44] VITALS: BMI 22.5
[2021-12-21 07:37] LABS: INR Fingerstick 2.4; Prothrombin Time Fingerstick 28.1 SEC (11.7-14.9)
[2022-01-06 07:23] LABS: INR Fingerstick 1.8; Prothrombin Time Fingerstick 21.1 SEC (11.7-14.9)
== END 2022-01-05 18:00 | disposition home or self-care (01) ==
LOC: LAB 15:54
PROVIDERS: Family Provider Pediatrics; PCP Family Medicine
DX: I35.0 Nonrheumatic aortic (valve) stenosis (principal)
CPT/HCPCS: 36416; 85610

== ENCOUNTER 2022-01-20 14:02 | Outpatient (RCR) | payer MEDICAID, SELFPAY ==
[2022-01-08 03:01] VITALS: BMI 22.5
[2022-01-21 09:10] LABS: INR Fingerstick 1.3; Prothrombin Time Fingerstick 15.6 SEC (11.7-14.9)
== END 2022-01-20 18:00 | disposition home or self-care (01) ==
LOC: LAB 14:02
PROVIDERS: Family Provider Pediatrics; PCP Family Medicine
DX: I35.0 Nonrheumatic aortic (valve) stenosis (principal)
CPT/HCPCS: 36416; 85610

== ENCOUNTER 2022-03-06 15:14 | Outpatient (RCR) | payer MEDICAID, SELFPAY ==
[2022-02-07 20:38] VITALS: BMI 22.5
[2022-02-09 16:32] LABS: INR Fingerstick 2.1; Prothrombin Time Fingerstick 24.5 SEC (11.7-14.9)
[2022-02-20 15:41] LABS: INR Fingerstick 2.8
[2022-02-28 07:30] LABS: INR Fingerstick 3.4; Prothrombin Time Fingerstick 38.1 SEC (11.7-14.9)
[2022-03-07 10:16] LABS: INR Fingerstick 2.8; Prothrombin Time Fingerstick 31.7 SEC (11.7-14.9)
== END 2022-03-06 23:59 | disposition home or self-care (01) ==
LOC: LAB 15:14
PROVIDERS: Family Provider Pediatrics; PCP Family Medicine
DX: I35.0 Nonrheumatic aortic (valve) stenosis (principal)
CPT/HCPCS: 36416; 85610

== ENCOUNTER 2022-03-31 16:08 | Outpatient (RCR) | payer MEDICAID, SELFPAY ==
[2022-03-10 06:56] VITALS: BMI 22.5
[2022-03-25 09:44] LABS: INR Fingerstick 2.8; Prothrombin Time Fingerstick 31.8 SEC (11.7-14.9)
[2022-04-03 09:12] LABS: INR Fingerstick 2.5; Prothrombin Time Fingerstick 29.4 SEC (11.7-14.9)
== END 2022-04-09 02:15 | disposition home or self-care (01) ==
LOC: LAB 16:08
PROVIDERS: Family Provider Pediatrics; PCP Family Medicine
DX: Z95.2 Presence of prosthetic heart valve
CPT/HCPCS: 36416; 85610

== ENCOUNTER 2022-04-27 15:36 | Outpatient (RCR) | payer MEDICAID, SELFPAY ==
[2022-04-09 02:16] VITALS: BMI 22.5
[2022-04-14 15:02] LABS: INR Fingerstick 2.3; Prothrombin Time Fingerstick 26.9 SEC (11.7-14.9)
[2022-04-28 07:36] LABS: INR Fingerstick 2.2
== END 2022-04-27 18:00 | disposition home or self-care (01) ==
LOC: LAB 15:36
PROVIDERS: Family Provider Pediatrics; PCP Family Medicine
DX: Z95.2 Presence of prosthetic heart valve (principal)
CPT/HCPCS: 36416; 85610

== ENCOUNTER 2022-06-08 14:13 | Outpatient (RCR) | payer MEDICAID, SELFPAY ==
[2022-05-10 22:54] VITALS: BMI 22.5
[2022-05-11 15:50] LABS: INR Fingerstick 2.2; Prothrombin Time Fingerstick 25.4 SEC (11.7-14.9)
[2022-06-14 09:02] LABS: INR Fingerstick 2.2; Prothrombin Time Fingerstick 25.9 SEC (11.7-14.9)
== END 2022-06-08 18:00 | disposition home or self-care (01) ==
LOC: LAB 14:13
PROVIDERS: Family Provider Pediatrics; PCP Family Medicine
DX: Z95.2 Presence of prosthetic heart valve (principal)
CPT/HCPCS: 36416; 85610

== ENCOUNTER 2022-07-10 12:26 | Outpatient (RCR) | payer MEDICAID, SELFPAY ==
[2022-06-09 21:22] VITALS: BMI 22.5
[2022-06-26 16:14] LABS: Prothrombin Time Fingerstick 24.1 SEC (11.7-14.9)
[2022-07-10 15:54] LABS: INR Fingerstick 2.1; Prothrombin Time Fingerstick 24.9 SEC (11.7-14.9)
== END 2022-07-10 18:00 | disposition home or self-care (01) ==
LOC: LAB 12:26
PROVIDERS: Family Provider Pediatrics; PCP Family Medicine
DX: Z95.2 Presence of prosthetic heart valve (principal)
CPT/HCPCS: 36416; 85610

== ENCOUNTER 2022-08-08 16:30 | Outpatient (RCR) | payer MEDICAID, SELFPAY ==
[2022-07-11 09:51] VITALS: BMI 22.5
[2022-07-26 08:10] LABS: INR Fingerstick 2.2; Prothrombin Time Fingerstick 25.7 SEC (11.7-14.9)
[2022-08-08 16:55] LABS: INR Fingerstick 1.6; Prothrombin Time Fingerstick 18.8 SEC (11.7-14.9)
== END 2022-08-09 18:00 | disposition home or self-care (01) ==
LOC: LAB 16:30
PROVIDERS: Family Provider Pediatrics; PCP Family Medicine
DX: Z95.2 Presence of prosthetic heart valve (principal)
CPT/HCPCS: 36416; 85610

== ENCOUNTER 2022-08-31 14:16 | Outpatient (RCR) | payer MEDICAID, SELFPAY ==
[2022-08-09 23:05] VITALS: BMI 22.5
[2022-08-31 15:40] LABS: INR Fingerstick 1.7; Prothrombin Time Fingerstick 20.2 SEC (11.7-14.9)
== END 2022-08-31 18:00 | disposition home or self-care (01) ==
LOC: LAB 14:16
PROVIDERS: Family Provider Pediatrics; PCP Family Medicine
DX: Z95.2 Presence of prosthetic heart valve (principal)
CPT/HCPCS: 36416; 85610

== ENCOUNTER 2022-10-09 16:31 | Outpatient (RCR) | payer MEDICAID, SELFPAY ==
[2022-09-10 02:11] VITALS: BMI 22.5
[2022-09-13 07:42] LABS: INR Fingerstick 1.7
[2022-09-19 13:56] LABS: INR Fingerstick 2.3; Prothrombin Time Fingerstick 26.7 SEC (11.7-14.9)
[2022-09-26 14:30] LABS: INR Fingerstick 2.8; Prothrombin Time Fingerstick 31.9 SEC (11.7-14.9)
[2022-10-09 16:45] LABS: INR Fingerstick 3.3; Prothrombin Time Fingerstick 36.8 SEC (11.7-14.9)
== END 2022-10-09 18:00 | disposition home or self-care (01) ==
LOC: LAB 16:31
PROVIDERS: Family Provider Pediatrics; PCP Family Medicine; Referring Provider Internal Medicine Cardiovascular Disease; Visit Provider Internal Medicine Cardiovascular Disease
DX: Z95.2 Presence of prosthetic heart valve (principal)
CPT/HCPCS: 36416; 85610

== ENCOUNTER 2022-10-31 16:10 | Outpatient (RCR) | payer MEDICAID, SELFPAY ==
[2022-10-11 08:12] VITALS: BMI 22.5
[2022-10-20 16:20] LABS: Prothrombin Time Fingerstick 34.7 SEC (11.7-14.9)
[2022-10-31 16:21] LABS: Prothrombin Time Fingerstick 34.7 SEC (11.7-14.9)
== END 2022-10-31 18:00 | disposition home or self-care (01) ==
LOC: LAB 16:10
PROVIDERS: Family Provider Pediatrics; PCP Family Medicine; Referring Provider Internal Medicine Cardiovascular Disease; Visit Provider Internal Medicine Cardiovascular Disease
DX: Z95.2 Presence of prosthetic heart valve (principal)
CPT/HCPCS: 36416; 85610

== ENCOUNTER 2022-12-05 15:20 | Outpatient (RCR) | payer MEDICAID, SELFPAY ==
[2022-11-07 20:03] VITALS: BMI 22.5
[2022-11-17 16:25] LABS: INR Fingerstick 2.4; Prothrombin Time Fingerstick 27.8 SEC (11.7-14.9)
[2022-11-29 15:30] LABS: INR Fingerstick 3.2; Prothrombin Time Fingerstick 33.9 SEC (11.7-14.9)
[2022-12-05 13:50] LABS: INR Fingerstick 3.5; Prothrombin Time Fingerstick 36.9 SEC (11.7-14.9)
== END 2022-12-08 23:00 | disposition home or self-care (01) ==
LOC: LAB 15:20
PROVIDERS: Family Provider Pediatrics; PCP Family Medicine; Referring Provider Internal Medicine Cardiovascular Disease; Visit Provider Internal Medicine Cardiovascular Disease
DX: Z95.2 Presence of prosthetic heart valve (principal)
CPT/HCPCS: 36416; 85610

== ENCOUNTER 2022-12-20 13:13 | Outpatient (RCR) | payer MEDICAID, SELFPAY ==
[2022-12-09 00:14] VITALS: BMI 22.5
[2022-12-20 13:20] LABS: INR Fingerstick 2.5; Prothrombin Time Fingerstick 26.7 SEC (11.7-14.9)
== END 2023-01-07 01:14 | disposition home or self-care (01) ==
LOC: LAB 13:13
PROVIDERS: Family Provider Pediatrics; PCP Family Medicine; Referring Provider Internal Medicine Cardiovascular Disease; Visit Provider Internal Medicine Cardiovascular Disease
DX: Z95.2 Presence of prosthetic heart valve (principal)
CPT/HCPCS: 36416; 85610

== ENCOUNTER 2023-02-06 16:12 | Outpatient (RCR) | payer MEDICAID, SELFPAY ==
[2023-01-07 01:14] VITALS: BMI 22.5
[2023-01-11 13:15] LABS: INR Fingerstick 2.5; Prothrombin Time Fingerstick 27.4 SEC (11.7-14.9)
[2023-01-24 15:06] LABS: INR Fingerstick 2.7
[2023-02-06 16:19] LABS: INR Fingerstick 2.7; Prothrombin Time Fingerstick 29.2 SEC (11.7-14.9)
== END 2023-02-07 18:00 | disposition home or self-care (01) ==
LOC: LAB 16:12
PROVIDERS: Family Provider Pediatrics; PCP Family Medicine; Referring Provider Internal Medicine Cardiovascular Disease; Visit Provider Internal Medicine Cardiovascular Disease
DX: Z95.2 Presence of prosthetic heart valve (principal)
CPT/HCPCS: 36416; 85610

== ENCOUNTER 2023-02-16 20:32 | Emergency (ER) | payer MEDICAID, SELFPAY ==
[2023-02-16 20:33] VITALS: BP 137/63; PULSE 82; RESP 16; TEMP 35.6; O2SAT 100; BMI 26.6
--- NOTE | 2023-02-16 20:59 | RAD_ITS ---
INDICATION: Injury/Pain EXAMINATION/TECHNIQUE: X-RAY - XR Tibia/Fibula 2 Views COMPARISON: No previous relevant examinations available for comparison FINDINGS: Bones: There is normal bony alignment, trabecular pattern is normal. No fractures or focal lytic or sclerotic bony lesions. Joints: Visualized joint spaces are maintained. No subluxation or displacement. No periarticular erosions. Soft tissues: Normal appearance of the soft tissues. No radiopaque foreign bodies noted. RAD/Tibia & Fibula 2 Views IMPRESSION: 1. No fracture, subluxation, focal bony or joint space abnormality involving the LEFT tibia and fibula.. Electronically Signed: Andrei De La O MD at 21:21 EDT ,
--- NOTE | 2023-02-16 21:38 | ED.VIS.LOWEX ---
HPI History of Present Illness HPI Narrative: Patient presents with left leg injury that occurred approximately 1 week ago. Patient does not remember the exact time or date of injury. Patient states that he was carrying a heavy object when he accidentally hit his leg against the object. Patient states the pain has been persistent. Patient describes the pain as sharp. Patient states it is worse with ambulation. Patient states it is better with rest and ice. Patient denies any paresthesias or weakness. Patient denies any other injuries. Chief Complaint: Lower Extremity Injury Informant: patient Onset/Context/Timing Onset: Weeks (1) Context: Sudden Onset Timing: Continuous Quality of Pain: Sharp Location: Left lower leg Worsened by: Ambulation Relieved by: Rest, ice Associated Symptoms Associated Symptoms: Negative for Parasthesia, Weakness or Loss of Funtion PFSH PFS Medical History Artificial cardiac pacemaker Cardiac defibrillator in place Truncus arteriosus Medical History no medical history Home Medications warfarin 6 mg tablet (Jantoven) 6 mg PO GRANT 08/29/17 [History Last Taken Unknown] albuterol sulfate 90 mcg/actuation aerosol inhaler (Ventolin HFA) 1 - 2 puff inhalation Q4H PRN PRN Sob &/Or Wheezing 11/21/18 [History Last Taken Unknown] hydrochlorothiazide 12.5 mg tablet 12.5 mg PO DAILY 11/21/18 [History Last Taken Unknown] warfarin 6 mg tablet (Jantoven) 7 mg PO MOTUWETHFRSA 11/21/18 [History Last Taken Unknown] lorazepam 0.5 mg tablet (Ativan) 0.5 mg PO BID PRN anxiety 5 days #10 tabs 07/08/21 [Rx Last Taken Unknown] metoprolol tartrate 50 mg tablet 50 mg BID 07/08/21 [History Last Taken Unknown] Allergy/AdvReac Type Severity Reaction Status Date / Time acetaminophen [From Percocet] AdvReac BLURRED Verified 02/16/23 20:32 VISION AND MILKY DRAINAGE FROM EYES oxycodone HCl [From Percocet] AdvReac BLURRED Verified 02/16/23 20:32 VISION AND MILKY DRAINAGE FROM EYES Surgical History H/O aortic valve replacement Social History Smoking Status: Never smoker ROS ROS ED Constitutional Constitutional ED: Denies chills or fever(s) Eyes Eyes: Denies blurry vision or change in vision ENT ENT ED: Reports rhinorrhea; Denies sore throat Cardiovascular Cardiovascular: Denies chest pain or palpitations Respiratory/Chest Respiratory/Chest: Denies cough or dyspnea Gastrointestinal Gastrointestinal: Denies nausea or vomiting Genitourinary Genitourinary ED: Denies dysuria or hematuria Musculoskeletal Musculoskeletal: Denies back pain or neck pain Integumentary Denies abscess or rash Neurologic Neurologic: Denies headache(s) or weakness Allergic/Immunologic Allergic/Immunologic ED: Denies mouth swelling or urticaria EXAM Physical Exam Const Vital Signs: 02/16/23 20:33 Temperature 96.0 F L Temperature Source Temporal Pulse Rate 82 Respiratory Rate 16 Blood Pressure 137/63 H Blood Pressure Mean 87 Pulse Ox 100 Oxygen Delivery Method Room Air Positive well nourished and well developed General Appearance ED: well developed and NAD HEENT Reports moist mucous membranes Neck full ROM and supple Extremity Extremity Narrative: There is tenderness with mild edema and ecchymosis over the anterior aspect of the left lower leg. There is no bony crepitance or step-off. There is no obvious deformity noted. Range of motion was slightly limited in flexion and extension of the left knee and ankle secondary to pain. Sensation was intact to light touch in all digits. Strength is 5/5 bilaterally in the lower extremities. Pedal pulses are equal bilaterally. Neuro oriented x3, CN's II-XII intact bilaterally, moves all extremities and no sensory deficits noted Sensorium / Orientation: alert Motor Exam: strength 5/5 throughout Psych mental status grossly normal MDM MDM MDM Narrative Medical decision making narrative: Differential diagnosis includes contusion and fracture. X-rays of the left tibia-fibula will be obtained to assess for fracture. Radiography Diagnostic Testing: Clinical Impression(s) from Imaging Studies Tibia/Fibula X-Ray 02/16/23 20:59 IMPRESSION: 1. No fracture, subluxation, focal bony or joint space abnormality involving the LEFT tibia and fibula.. Electronically Signed: Andrei De La O MD at 21:21 EDT , X-rays of the left tibia and fibula were obtained. There are 4 views. On my independent interpretation, there is no acute fracture or dislocation noted. Radiologist also interpreted the x-rays and agrees. Treatment and Re-Evaluation Narrative: Patient was advised of his findings. Patient was instructed to ice and elevate the left leg. Patient was instructed to follow-up with his primary care physician in 5 to 7 days. Patient was instructed take Tylenol as needed for pain. Patient was instructed to return if worse in any way. Patient understood and was agreeable with the plan. All questions were answered. Discharge Plan Triage Chief Complaint: Lower Extremity Injury ED Provider: Charles Bui Dx/Rx/DC Orders Clinical Impression: Contusion of left lower leg, initial encounter Instructions: ED Contusion, Lower Extremity Prescriptions: No Action warfarin [Jantoven] 6 MG tablet 6 mg PO GRANT warfarin [Jantoven] 6 MG tablet 7 mg PO MOTUWETHFRSA albuterol sulfate [Ventolin HFA] 1 INHALER inhaler 1 - 2 puff inhalation Q4H PRN PRN (Reason: Sob &/Or Wheezing) hydrochlorothiazide 12.5 MG tablet 12.5 mg PO DAILY metoprolol tartrate 50 mg tablet 50 mg BID lorazepam [Ativan] 0.5 mg tablet 0.5 mg PO BID PRN (Reason: anxiety) 5 Days Qty: 10 0RF Stand Alone Forms: ED Work / School Excuse Primary Care Provider: Colby Urbano Referrals: Colby Urbano MD [Primary Care Provider] - 5-7 Days Disposition Disposition: Home, Self Care
== END 2023-02-16 21:49 | disposition home or self-care (01) ==
PROVIDERS: Emergency Provider Emergency Medicine; PCP Family Medicine; Visit Provider Emergency Medicine
DX: S80.12XA Contusion of left lower leg, initial encounter (principal); Z95.0 Presence of cardiac pacemaker; X58.XXXA Exposure to other specified factors, initial encounter
CPT/HCPCS: 73590; 99282

== ENCOUNTER 2023-03-01 16:23 | Outpatient (RCR) | payer MEDICAID, SELFPAY ==
[2023-02-08 08:48] VITALS: BMI 22.5
[2023-02-26 08:34] LABS: INR Fingerstick 3.5; Prothrombin Time Fingerstick 36.6 SEC (11.7-14.9)
[2023-03-01 17:25] LABS: Prothrombin Time (Protime)PT. 31.5 SECONDS (11.7-14.9)
== END 2023-03-01 18:00 | disposition home or self-care (01) ==
LOC: LAB 16:23
PROVIDERS: Family Provider Pediatrics; PCP Family Medicine; Referring Provider Internal Medicine Cardiovascular Disease; Visit Provider Internal Medicine Cardiovascular Disease
DX: Z95.2 Presence of prosthetic heart valve (principal)
CPT/HCPCS: 36415; 36416; 85610

== ENCOUNTER 2023-03-29 13:22 | Outpatient (RCR) | payer MEDICAID, SELFPAY ==
[2023-03-09 22:01] VITALS: BMI 22.5
[2023-03-20 16:01] LABS: INR Fingerstick 2.6; Prothrombin Time Fingerstick 27.6 SEC (11.7-14.9)
[2023-03-29 13:32] LABS: INR Fingerstick 2.4; Prothrombin Time Fingerstick 25.6 SEC (11.7-14.9)
== END 2023-04-09 18:00 | disposition home or self-care (01) ==
LOC: LAB 13:22
PROVIDERS: Family Provider Pediatrics; PCP Family Medicine; Referring Provider Internal Medicine Cardiovascular Disease; Visit Provider Internal Medicine Cardiovascular Disease
DX: Z95.2 Presence of prosthetic heart valve (principal)
CPT/HCPCS: 36416; 85610

== ENCOUNTER 2023-04-12 13:11 | Outpatient (RCR) | payer MEDICAID, SELFPAY ==
[2023-04-10 00:33] VITALS: BMI 22.5
[2023-04-12 13:22] LABS: Prothrombin Time Fingerstick 22.4 SEC (11.7-14.9)
== END 2023-04-12 18:00 | disposition home or self-care (01) ==
LOC: LAB 13:11
PROVIDERS: Family Provider Pediatrics; PCP Family Medicine; Referring Provider Internal Medicine Cardiovascular Disease; Visit Provider Internal Medicine Cardiovascular Disease
DX: Z95.2 Presence of prosthetic heart valve (principal)
CPT/HCPCS: 36416; 85610

== ENCOUNTER 2023-05-23 12:47 | Outpatient (RCR) | payer MEDICAID, SELFPAY ==
[2023-05-10 22:37] VITALS: BMI 22.5
[2023-05-21 09:12] LABS: INR Fingerstick 1.6; Prothrombin Time Fingerstick 17.4 SEC (11.7-14.9)
[2023-05-23 12:53] LABS: INR Fingerstick 2.1
== END 2023-05-23 18:00 | disposition home or self-care (01) ==
LOC: LAB 12:47
PROVIDERS: Family Provider Pediatrics; PCP Family Medicine; Referring Provider Internal Medicine Cardiovascular Disease; Visit Provider Internal Medicine Cardiovascular Disease
DX: Z95.4 Presence of other heart-valve replacement
CPT/HCPCS: 36416; 85610

== ENCOUNTER 2023-06-29 13:24 | Outpatient (RCR) | payer MEDICAID, SELFPAY ==
[2023-06-10 02:36] VITALS: BMI 22.5
[2023-06-14 13:28] LABS: INR Fingerstick 2.5; Prothrombin Time Fingerstick 26.8 SEC (11.7-14.9)
== END 2023-06-29 18:00 | disposition home or self-care (01) ==
LOC: LAB 13:24
PROVIDERS: Family Provider Pediatrics; PCP Family Medicine; Referring Provider Internal Medicine Cardiovascular Disease; Visit Provider Internal Medicine Cardiovascular Disease
DX: Z95.2 Presence of prosthetic heart valve (principal); Z95.4 Presence of other heart-valve replacement
CPT/HCPCS: 36416; 85610

== ENCOUNTER 2023-08-09 08:55 | Outpatient (RCR) | payer MEDICAID, SELFPAY ==
[2023-07-10 23:08] VITALS: BMI 22.5
[2023-07-11 13:02] LABS: INR Fingerstick 2.5; Prothrombin Time Fingerstick 27.5 SEC (11.7-14.9)
[2023-07-26 16:13] LABS: INR Fingerstick 2.6; Prothrombin Time Fingerstick 27.6 SEC (11.7-14.9)
[2023-08-09 09:01] LABS: INR Fingerstick 2.3; Prothrombin Time Fingerstick 24.9 SEC (11.7-14.9)
== END 2023-08-09 18:00 | disposition home or self-care (01) ==
LOC: LAB 08:55
PROVIDERS: Family Provider Pediatrics; PCP Family Medicine; Referring Provider Internal Medicine Cardiovascular Disease; Visit Provider Internal Medicine Cardiovascular Disease
DX: Z95.2 Presence of prosthetic heart valve (principal)
CPT/HCPCS: 36416; 85610

== ENCOUNTER 2023-09-05 15:10 | Outpatient (RCR) | payer MEDICAID, SELFPAY ==
[2023-08-10 03:44] VITALS: BMI 22.5
[2023-08-22 15:26] LABS: INR Fingerstick 2.9; Prothrombin Time Fingerstick 30.8 SEC (11.7-14.9)
[2023-09-05 15:23] LABS: INR Fingerstick 2.5; Prothrombin Time Fingerstick 26.7 SEC (11.7-14.9)
== END 2023-09-09 18:00 | disposition home or self-care (01) ==
LOC: LAB 15:10
PROVIDERS: Family Provider Pediatrics; PCP Family Medicine; Referring Provider Internal Medicine Cardiovascular Disease; Visit Provider Internal Medicine Cardiovascular Disease
DX: Z95.2 Presence of prosthetic heart valve (principal)
CPT/HCPCS: 36416; 85610

== ENCOUNTER 2023-10-04 13:38 | Outpatient (RCR) | payer MEDICAID, SELFPAY ==
[2023-09-09 20:39] VITALS: BMI 22.5
[2023-09-20 15:16] LABS: INR Fingerstick 2.7; Prothrombin Time Fingerstick 29.1 SEC (11.7-14.9)
[2023-10-04 13:57] LABS: INR Fingerstick 2.4; Prothrombin Time Fingerstick 24.7 SEC (11.7-14.9)
== END 2023-10-04 18:00 | disposition home or self-care (01) ==
LOC: LAB 13:38
PROVIDERS: Family Provider Pediatrics; PCP Family Medicine; Referring Provider Internal Medicine Cardiovascular Disease; Visit Provider Internal Medicine Cardiovascular Disease
DX: Z95.4 Presence of other heart-valve replacement
CPT/HCPCS: 36416; 85610

== ENCOUNTER 2023-11-01 15:24 | Outpatient (RCR) | payer MEDICAID, SELFPAY ==
[2023-10-10 22:02] VITALS: BMI 22.5
[2023-10-18 13:17] LABS: INR Fingerstick 2.3; Prothrombin Time Fingerstick 24.2 SEC (11.7-14.9)
[2023-11-01 15:36] LABS: Prothrombin Time Fingerstick 21.3 SEC (11.7-14.9)
== END 2023-11-08 18:00 | disposition home or self-care (01) ==
LOC: LAB 15:24
PROVIDERS: Family Provider Pediatrics; PCP Family Medicine; Referring Provider Internal Medicine Cardiovascular Disease; Visit Provider Internal Medicine Cardiovascular Disease
DX: Z95.2 Presence of prosthetic heart valve (principal)
CPT/HCPCS: 36416; 85610

== ENCOUNTER 2023-11-27 15:54 | Outpatient (RCR) | payer MEDICAID, SELFPAY ==
[2023-11-08 22:33] VITALS: BMI 22.5
[2023-11-15 15:32] LABS: Prothrombin Time Fingerstick 21.4 SEC (11.7-14.9)
== END 2023-12-08 18:00 | disposition home or self-care (01) ==
LOC: LAB 15:54
PROVIDERS: Family Provider Pediatrics; PCP Family Medicine; Referring Provider Internal Medicine Cardiovascular Disease; Visit Provider Internal Medicine Cardiovascular Disease
DX: Z95.4 Presence of other heart-valve replacement
CPT/HCPCS: 36416; 85610

== ENCOUNTER 2023-12-29 14:59 | Emergency (ER) | payer MEDICAID, SELFPAY ==
[2023-12-29] VITALS (9 sets, daily range): BP systolic 80–175; BP diastolic 59–106; PULSE 55–137; RESP 12–19; TEMP 36.8–37.1; O2SAT 97–100; BMI 25.0
--- NOTE | 2023-12-29 15:21 | EKG12_ITS ---
Test Reason : PALPS Blood Pressure : / mmHG Vent. Rate : 121 BPM Atrial Rate : 258 BPM P-R Int : 000 ms QRS Dur : 154 ms QT Int : 368 ms P-R-T Axes : 000 -33 185 degrees QTc Int : 522 ms Supraventricular tachycardia with occasional paced beat Left axis deviation Left bundle branch block Abnormal ECG Confirmed by Raymond Angulo ([id number]), writer editor AGNELIKA WILLSON ([id number]) on 12/31/2023 1:59:04 PM Referred By: MICHAEL/AMMON Confirmed By:Raymond Angulo
--- NOTE | 2023-12-29 15:27 | ED.VIS.CHEST ---
HPI History of Present Illness Chief Complaint: Palpitations Informant: patient Narrative Narrative: 23-year-old male history of truncus arteriosus as well as a mechanical aortic valve pacemaker defibrillator-patient of Dr. Douglas Escobar to the [facility] presenting to the emergency room with palpitations and dyspnea. Patient states that he was at work last evening when he started noticing some dyspnea on exertion. He felt his heart racing. He has not had syncope or pain. He denies any cough or recent fever/illnesses. Patient notes a history of a dysrhythmia that has been passed out in the past but does not know what it is. He states that he spoke with cardiology at [facility] this morning was referred to emergency. Patient does not believe he is missed any doses of his medicines this week. [facility] Medical History Artificial cardiac pacemaker Cardiac defibrillator in place Truncus arteriosus Home Medications warfarin 6 mg tablet (Jantoven) 6 mg PO GRANT 08/29/17 [History Last Taken Unknown] albuterol sulfate 90 mcg/actuation aerosol inhaler (Ventolin HFA) 1 - 2 puff inhalation Q4H PRN PRN Sob &/Or Wheezing 11/21/18 [History Last Taken Unknown] hydrochlorothiazide 12.5 mg tablet 12.5 mg PO DAILY 11/21/18 [History Last Taken Unknown] warfarin 6 mg tablet (Jantoven) 7 mg PO MOTUWETHFRSA 11/21/18 [History Last Taken Unknown] lorazepam 0.5 mg tablet (Ativan) 0.5 mg PO BID PRN anxiety 5 days #10 tabs 07/08/21 [Rx Last Taken Unknown] metoprolol tartrate 50 mg tablet 50 mg BID 07/08/21 [History Last Taken Unknown] Allergy/AdvReac Type Severity Reaction Status Date / Time acetaminophen [From Percocet] AdvReac BLURRED Verified 12/29/23 15:02 VISION AND MILKY DRAINAGE FROM EYES oxycodone HCl [From Percocet] AdvReac BLURRED Verified 12/29/23 15:02 VISION AND MILKY DRAINAGE FROM EYES Surgical History H/O aortic valve replacement Social History Smoking Status: Never smoker ROS ROS ED Constitutional Constitutional ED: Denies chills, fever(s) or weight loss Eyes Eyes: Denies change in vision or diplopia ENT ENT ED: Denies ear pain, rhinorrhea or sore throat Cardiovascular Cardiovascular: Reports palpitations; Denies chest pain, orthopnea or racing heartbeat Respiratory/Chest Respiratory/Chest: Reports dyspnea, dyspnea on exertion and other Details: Denies syncope ; Denies cough or orthopnea Gastrointestinal Gastrointestinal: Denies abdominal pain, diarrhea, nausea or vomiting Genitourinary Genitourinary ED: Denies dysuria, hematuria or urinary frequency Musculoskeletal Musculoskeletal: Denies arthralgias or myalgias Integumentary Denies abscess or rash Neurologic Neurologic: Denies headache(s) or weakness Psychiatric Psychiatric: Denies anxiety, depression, suicidal ideation or suicidal thoughts Endocrine Endocrinology: Denies polydipsia, polyphagia or polyuria Allergic/Immunologic Allergic/Immunologic ED: Denies mouth swelling, tongue swelling or urticaria EXAM Physical Exam Const Vital Signs: 12/29/23 15:03 12/29/23 15:25 12/29/23 16:06 Temperature 98.3 F 98.2 F Temperature Source Temporal Pulse Rate 137 H 128 H Pulse Rate [1 (Initial Baseline)] Pulse Rate [2] Respiratory Rate 18 12 Respiratory Rate [1 (Initial Baseline)] Respiratory Rate [2] Respiratory Effort Short of Breath Blood Pressure 117/106 H 120/97 H Blood Pressure [1 (Initial Baseline)] Blood Pressure [2] Blood Pressure Mean 109 Pulse Ox 100 98 Oxygen Delivery Method Room Air Oxygen Delivery Method [1 (Initial Baseline)] Oxygen Delivery Method [2] Oxygen Flow Rate (L/min) 0 Oxygen Flow Rate (L/min) [1 (Initial Baseline)] Oxygen Flow Rate (L/min) [2] 12/29/23 16:47 12/29/23 16:57 12/29/23 17:02 Temperature Temperature Source Pulse Rate Pulse Rate [1 (Initial Baseline)] 99 Pulse Rate [2] 100 Respiratory Rate Respiratory Rate [1 (Initial Baseline)] 16 Respiratory Rate [2] 14 Respiratory Effort Blood Pressure Blood Pressure [1 (Initial Baseline)] 132/99 H Blood Pressure [2] 175/97 H Blood Pressure Mean Pulse Ox Oxygen Delivery Method Nasal Cannula Nasal Cannula Oxygen Delivery Method [1 (Initial Baseline)] Room Air Oxygen Delivery Method [2] Nasal Cannula Oxygen Flow Rate (L/min) 2 2 Oxygen Flow Rate (L/min) [1 (Initial Baseline)] 0 Oxygen Flow Rate (L/min) [2] 4 12/29/23 17:05 12/29/23 17:07 12/29/23 18:56 Temperature Temperature Source Pulse Rate 55 L 73 Pulse Rate [1 (Initial Baseline)] Pulse Rate [2] Respiratory Rate 12 19 H Respiratory Rate [1 (Initial Baseline)] Respiratory Rate [2] Respiratory Effort Blood Pressure 124/74 H 110/87 H Blood Pressure [1 (Initial Baseline)] Blood Pressure [2] Blood Pressure Mean 90 94 Pulse Ox 99 99 Oxygen Delivery Method Nasal Cannula Room Air Nasal Cannula Oxygen Delivery Method [1 (Initial Baseline)] Oxygen Delivery Method [2] Oxygen Flow Rate (L/min) 2 0 2 Oxygen Flow Rate (L/min) [1 (Initial Baseline)] Oxygen Flow Rate (L/min) [2] Positive well nourished and well developed General Appearance ED: well developed HEENT Reports normocephalic, head/scalp atraumatic and moist mucous membranes Eyes PERRL and EOMs intact bilaterally Neck no lymphadenopathy, supple and no JVD Chest Wall Chest Narrative: Well-healed surgical incisions. Resp normal respiratory effort and clear to auscultation bilaterally Cardio regular rhythm Cardio Narrative: Mechanical S2 sound Rate: tachycardic GI normal to inspection, nondistended, normoactive bowel sounds and non-tender Palpation: soft Back/Spine no CVA tenderness and normal ROM Extremity normal to inspection General Extremety ED: Negative for edema General Extremity: Negative for edema Neuro oriented x3 and CN's II-XII intact bilaterally Sensorium / Orientation: alert Motor Exam: strength 5/5 throughout Psych mental status grossly normal Mood & Affect: Negative for depressed or tearful Skin no rashes or lesions noted and no wounds MDM MDM MDM Narrative Medical decision making narrative: After the initial history and physical and review of the EKG I spoke directly with on-call cardiology at [facility]. Their recommendation is for cardioversion. The patient's labs are reviewed his potassium is noted to be 3.2 and will be replaced. His INR is at 3.6. Magnesium 1.7. Troponin slightly elevated to 93 which I think is most likely rate dependent. I spoke with the patient and obtained informed written consent for procedural sedation for electrical cardioversion. Patient was pretreated with fentanyl and given a dose of etomidate. Once adequate sedation was achieved a synchronized 200 J shock was delivered resulting in return to a normal sinus rhythm. Patient was observed here in the department. He has remained in a sinus rhythm with occasional pacemaker beats. Patient is otherwise feeling back to baseline. He will be discharged home. 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 Labs: Laboratory Results - last 24 hr 12/29/23 15:28 WBC 9.3 RBC 5.12 Hgb 15.8 Hct 47.1 MCV 92.0 MCH 30.9 MCHC 33.5 RDW Std Deviation 43.1 RDW Coeff of Louis 12.7 Plt Count 195 MPV 11.5 Immature Gran % (Auto) 0.400 Neut % (Auto) 71.4 H Lymph % (Auto) 20.3 [place] % (Auto) 4.6 Eos % (Auto) 2.5 Baso % (Auto) 0.8 Absolute Neuts (auto) 6.6 Absolute Lymphs (auto) 1.89 Nucleated RBC % 0 PT 35.9 H INR 3.6 APTT 50.1 H Sodium 138 Potassium 3.2 L Chloride 104 Carbon Dioxide 28.0 Anion Gap 6 BUN 11 Creatinine 1.03 Estim Creat Clear Calc 103.39 Est GFR (MDRD) Af Amer 114 Est GFR (MDRD) Non-Af 94 BUN/Creatinine Ratio 10.7 Glucose 93 Calcium 9.3 Magnesium 1.7 Troponin I High Sens 293 H* Radiography Diagnostic Testing: Clinical Impression(s) from Imaging Studies Chest X-Ray 12/29/23 15:34 IMPRESSION: No acute findings in the chest. Electronically Signed: Minor Allison MD at 15:47 EDT , EKG Initial EKG: Attestation: I personally reviewed and interpreted this EKG as follows: Comments: Narrow complex tachycardia possibly atrial flutter 2-1 with upsloping of the QRS complexes and ST depression. Follow-up EKG: Attestation: I personally reviewed and interpreted this EKG as follows: Interpretation: Sinus Rhythm Comments: Sinus rhythm with occasional ventricular paced complexes at a rate of 64 bpm Management Discussion w/another healthcare provider: Examination Supervisor (Dustin [facility] ([id number])) Critical Care Time Critical Care Time: Yes Critical care time (excluding procedures): 30-74 minutes (32 min), Including time spent:, Discussing w/Patient &/or Family/Executive Assistant To General Counsel, Discussing w/Consultants, Arranging Admission or Transfer and Performing Direct Patient Care at Bedside Discharge Plan Triage Chief Complaint: Palpitations ED Provider: Asael Galloway Dx/Rx/DC Orders Clinical Impression: Elevated troponin, Anticoagulated on Coumadin, Atrial flutter with rapid ventricular response, Acute hypokalemia Instructions: ED Atrial Flutter Prescriptions: No Action warfarin [Jantoven] 6 MG tablet 6 mg PO GRANT warfarin [Jantoven] 6 MG tablet 7 mg PO MOTUWETHFRSA albuterol sulfate [Ventolin HFA] 1 INHALER inhaler 1 - 2 puff inhalation Q4H PRN PRN (Reason: Sob &/Or Wheezing) hydrochlorothiazide 12.5 MG tablet 12.5 mg PO DAILY metoprolol tartrate 50 mg tablet 50 mg BID lorazepam [Ativan] 0.5 mg tablet 0.5 mg PO BID PRN (Reason: anxiety) 5 Days Qty: 10 0RF Primary Care Provider: Colby Urbano Referrals: Colby Urbano MD [Primary Care Provider] - Activity Restrictions/Additional Instructions: Please keep your follow-up appointment with cardiology as scheduled on Sunday. Return to emergency if recurrence of symptoms. Disposition Disposition: Home, Self Care
--- NOTE | 2023-12-29 15:30 | EKG12_ITS ---
Test Reason : PALPS Blood Pressure : / mmHG Vent. Rate : 144 BPM Atrial Rate : 144 BPM P-R Int : 208 ms QRS Dur : 154 ms QT Int : 362 ms P-R-T Axes : 182 -35 188 degrees QTc Int : 560 ms Critical Test Result: High HR Unusual P axis, possible ectopic atrial tachycardia Left axis deviation Left bundle branch block Abnormal ECG Confirmed by Raymond Angulo ([id number]), editor managing director ANGELIKA WILLSON ([id number]) on 12/31/2023 1:58:38 PM Referred By: MICHAEL/AMMON Confirmed By:Raymond Angulo
--- NOTE | 2023-12-29 15:34 | RAD_ITS ---
EXAM: XR CHEST, 1 VIEW CLINICAL INDICATION: dyspnea TECHNIQUE: Frontal view of the chest. COMPARISON: No relevant prior studies available. FINDINGS: LUNGS AND PLEURAL SPACES: Unremarkable. No consolidation or edema. No pneumothorax. No effusion. HEART: Unremarkable. Cardiac silhouette not enlarged. MEDIASTINUM: Central airways and mediastinal contour are unremarkable. BONES/JOINTS: Unremarkable. No acute fracture. SOFT TISSUES: Unremarkable. TUBES, LINES AND DEVICES: Left-sided pacemaker battery pack. Prominent heart size. RAD/Chest 1 View (Portable) IMPRESSION: No acute findings in the chest. Electronically Signed: Minor Allison MD at 15:47 EDT ,
[2023-12-29 15:42] LABS: Absolute Lymphocyte Count 1.89 X10^3/uL (0.83-4.51); Absolute Neutrophil Count 6.6 X10^3/uL (2.0-7.7); Basophil# 0.07 X10^3/uL; Basophil% 0.8 % (0-1); Eosinophil# 0.23 X10^3/uL; Eosinophils% 2.5 % (0-5); Hematocrit 47.1 % (40-54); Hemoglobin 15.8 g/dL (13.0-16.5); Lymphocyte # 1.89 X10^3/ul (0.83-4.51); Lymphocyte % 20.3 % (19-41); Mean Corp Hgb Conc 33.5 g/dL (32-36); Mean Corpuscular Hgb 30.9 pg (27.0-32.0); Mean Platelet Vol. 11.5 fl (6.2-12.0); Monocyte# 0.43 X10^3/uL; Monocyte% 4.6 % (0-10); NRBC Flagged by Analyzer 0 % (0-5); Neutrophil # 6.64 X10^3/uL (2.7-7.7); Neutrophil % 71.4 % (47-70); Platelet Count 195 K/mm3 (150-450); RBC Distribution Width CV 12.7 % (11.6-14.6); RBC Distribution Width SD 43.1 fl (35.1-43.9); Red Blood Count 5.12 M/mm3 (4.6-6.2); White Blood Count 9.3 K/mm3 (4.4-11.0)
[2023-12-29 15:56] LABS: International Normalized Ratio 3.6; Prothrombin Time (Protime)PT. 35.9 SECONDS (11.7-14.9)
[2023-12-29 15:57] LABS: Partial Thromboplast Time 50.1 Seconds (24.1-36.2)
[2023-12-29 16:13] LABS: Anion Gap 6 (5-15); BUN 11 mg/dL (7-18); BUN/Creat Ratio 10.7 RATIO (10-20); Calcium,Total 9.3 mg/dL (8.5-10.1); Chloride 104 mmol/L (98-107); Creatinine, Serum 1.03 mg/dL (0.70-1.30); EST Glomerular Filtration Rate 94 mL/min (>60); Est Glom Filt Rate - Afr Amer 114 mL/min (>60); Estimated Creatinine Clearance 103.39 ml/min; Glucose 93 mg/dL (74-106); Magnesium 1.7 mg/dL (1.6-2.6); Potassium 3.2 mmol/L (3.5-5.1); Sodium Level 138 mmol/L (136-145); Troponin-I HS 293 pg/mL (3.0-78.0)
[2023-12-29] MEDS: fentaNYL 100 MCG/2 ML Ampul 50 MCG IV (16:41)
[2023-12-29] MEDS: Etomidate 20 MG/10 ML Vial 10.875 MG IV (16:48)
--- NOTE | 2023-12-29 17:06 | EKG12_ITS ---
Test Reason : POST-CARDIOVERSION Blood Pressure : / mmHG Vent. Rate : 064 BPM Atrial Rate : 064 BPM P-R Int : 142 ms QRS Dur : 166 ms QT Int : 490 ms P-R-T Axes : 052 -33 190 degrees QTc Int : 505 ms Sinus rhythm with occasional ventricular-paced complexes Left axis deviation Left bundle branch block Abnormal ECG Confirmed by Raymond Angulo ([id number]), online content editor ANGELIKA WILLSON ([id number]) on 12/31/2023 1:58:19 PM Referred By: MICHAEL Confirmed By:Raymond Angulo
--- NOTE | 2023-12-29 17:07 | EKG12_ITS ---
Test Reason : POST-CARDIOVERSION Blood Pressure : / mmHG Vent. Rate : 060 BPM Atrial Rate : 060 BPM P-R Int : 000 ms QRS Dur : 178 ms QT Int : 506 ms P-R-T Axes : 000 -66 003 degrees QTc Int : 506 ms Ventricular-paced rhythm Abnormal ECG Confirmed by Raymond Angulo ([id number]), digital editor ANGELIKA WILLSON ([id number]) on 12/31/2023 1:58:04 PM Referred By: MICHAEL Confirmed By:Raymond Angulo
[2023-12-29] MEDS: Potassium Chloride 10mEq/100mL 10 MEQ/100 ML IV.SOLN. 100 MEQ IV BOLUS (17:19)
== END 2023-12-29 19:47 | disposition home or self-care (01) ==
PROVIDERS: Emergency Provider Emergency Medicine; PCP Family Medicine; Visit Provider Emergency Medicine
DX: R79.89 Other specified abnormal findings of blood chemistry (principal); I48.92 Unspecified atrial flutter; E87.6 Hypokalemia; Z95.0 Presence of cardiac pacemaker
CPT/HCPCS: 71045; 80048; 83735; 84484; 85025; 85610; 85730; 92960; 93005; 96365; 96375; 99285; J7030; A4216

== ENCOUNTER 2024-01-03 15:18 | Outpatient (RCR) | payer MEDICAID, SELFPAY ==
[2023-12-08 22:26] VITALS: BMI 22.5
[2023-12-11 13:39] LABS: INR Fingerstick 2.4; Prothrombin Time Fingerstick 24.6 SEC (11.7-14.9)
[2024-01-03 15:42] LABS: INR Fingerstick 3.2; Prothrombin Time Fingerstick 31.5 SEC (11.7-14.9)
== END 2024-01-08 23:03 | disposition home or self-care (01) ==
LOC: LAB 15:18
PROVIDERS: Family Provider Pediatrics; PCP Family Medicine; Referring Provider Internal Medicine Cardiovascular Disease; Visit Provider Internal Medicine Cardiovascular Disease
DX: Z95.4 Presence of other heart-valve replacement (principal)
CPT/HCPCS: 36415; 36416; 85610

== ENCOUNTER 2024-01-30 15:17 | Outpatient (RCR) | payer MEDICAID, SELFPAY ==
[2024-01-08 23:03] VITALS: BMI 22.5
[2024-01-23 14:14] LABS: INR Fingerstick 2.8; Prothrombin Time Fingerstick 28.3 SEC (11.7-14.9)
[2024-01-30 15:32] LABS: INR Fingerstick 2.5; Prothrombin Time Fingerstick 25.3 SEC (11.7-14.9)
== END 2024-01-30 18:00 | disposition home or self-care (01) ==
LOC: LAB 15:17
PROVIDERS: Family Provider Pediatrics; PCP Family Medicine; Referring Provider Internal Medicine Cardiovascular Disease; Visit Provider Internal Medicine Cardiovascular Disease
DX: Z95.4 Presence of other heart-valve replacement (principal)
CPT/HCPCS: 36416; 85610

== ENCOUNTER 2024-02-25 14:50 | Outpatient (RCR) | payer MEDICAID, SELFPAY ==
[2024-02-11 09:31] VITALS: BMI 22.5
[2024-02-25 15:27] LABS: INR Fingerstick 2.6; Prothrombin Time Fingerstick 26.2 SEC (11.7-14.9)
== END 2024-02-25 18:00 | disposition home or self-care (01) ==
LOC: LAB 14:50
PROVIDERS: Family Provider Pediatrics; PCP Family Medicine; Referring Provider Internal Medicine Cardiovascular Disease; Visit Provider Internal Medicine Cardiovascular Disease
DX: Z95.4 Presence of other heart-valve replacement (principal)
CPT/HCPCS: 36416; 85610

== ENCOUNTER 2024-03-31 16:00 | Outpatient (RCR) | payer MEDICAID, SELFPAY ==
[2024-03-09 22:26] VITALS: BMI 22.5
[2024-03-18 12:41] LABS: INR Fingerstick 2.9; Prothrombin Time Fingerstick 29.6 SEC (11.7-14.9)
[2024-03-31 16:15] LABS: INR Fingerstick 2.8; Prothrombin Time Fingerstick 28.3 SEC (11.7-14.9)
== END 2024-04-09 18:00 | disposition home or self-care (01) ==
LOC: LAB 16:00
PROVIDERS: Family Provider Pediatrics; PCP Family Medicine; Referring Provider Internal Medicine Cardiovascular Disease; Visit Provider Internal Medicine Cardiovascular Disease
DX: Z95.4 Presence of other heart-valve replacement (principal)
CPT/HCPCS: 36416; 85610

== ENCOUNTER 2024-05-06 15:51 | Outpatient (RCR) | payer MEDICAID, SELFPAY ==
[2024-04-09 21:27] VITALS: BMI 22.5
[2024-04-19 07:41] LABS: INR Fingerstick 2.5; Prothrombin Time Fingerstick 25.8 SEC (11.7-14.9)
[2024-05-06 15:59] LABS: INR Fingerstick 2.8
== END 2024-05-06 18:00 | disposition home or self-care (01) ==
LOC: LAB 15:51
PROVIDERS: Family Provider Pediatrics; PCP Family Medicine; Referring Provider Internal Medicine Cardiovascular Disease; Visit Provider Internal Medicine Cardiovascular Disease
DX: Z95.4 Presence of other heart-valve replacement (principal)
CPT/HCPCS: 36416; 85610

== ENCOUNTER 2024-05-29 10:31 | Outpatient (RCR) | payer MEDICAID, SELFPAY ==
[2024-05-11 03:58] VITALS: BMI 22.5
[2024-05-15 10:30] LABS: INR Fingerstick 2.5; Prothrombin Time Fingerstick 25.4 SEC (11.7-14.9)
[2024-05-29 11:02] LABS: INR Fingerstick 2.1; Prothrombin Time Fingerstick 22.4 SEC (11.7-14.9)
== END 2024-05-29 18:00 | disposition home or self-care (01) ==
LOC: LAB 10:31
PROVIDERS: Family Provider Pediatrics; PCP Family Medicine; Referring Provider Internal Medicine Cardiovascular Disease; Visit Provider Internal Medicine Cardiovascular Disease
DX: Z95.4 Presence of other heart-valve replacement (principal)
CPT/HCPCS: 36416; 85610

== ENCOUNTER 2024-06-30 15:32 | Outpatient (RCR) | payer MEDICAID, SELFPAY ==
[2024-06-10 03:46] VITALS: BMI 22.5
[2024-06-12 10:14] LABS: INR Fingerstick 2.8; Prothrombin Time Fingerstick 28.2 SEC (11.7-14.9)
[2024-07-14 07:51] LABS: Prothrombin Time Fingerstick 30.2 SEC (11.7-14.9)
== END 2024-06-30 18:00 | disposition home or self-care (01) ==
LOC: LAB 15:32
PROVIDERS: Family Provider Pediatrics; PCP Family Medicine; Referring Provider Internal Medicine Cardiovascular Disease; Visit Provider Internal Medicine Cardiovascular Disease
DX: Z95.2 Presence of prosthetic heart valve (principal)
CPT/HCPCS: 36416; 85610

== ENCOUNTER 2024-07-28 14:52 | Outpatient (RCR) | payer MEDICAID, SELFPAY ==
[2024-07-10 20:43] VITALS: BMI 22.5
[2024-07-16 15:36] LABS: INR Fingerstick 2.6
[2024-07-28 15:12] LABS: INR Fingerstick 2.8; Prothrombin Time Fingerstick 29.8 SEC (11.7-14.9)
== END 2024-08-09 18:00 | disposition home or self-care (01) ==
LOC: LAB 14:52
PROVIDERS: Family Provider Pediatrics; PCP Family Medicine; Referring Provider Internal Medicine Cardiovascular Disease; Visit Provider Internal Medicine Cardiovascular Disease
DX: Z95.2 Presence of prosthetic heart valve
CPT/HCPCS: 36416; 85610

== ENCOUNTER 2024-08-31 15:14 | Emergency (ER) | payer MEDICAID, SELFPAY ==
[2024-08-31 15:15] VITALS: BP 104/64; PULSE 65; RESP 14; TEMP 36.7; O2SAT 94; BMI 31.1
--- NOTE | 2024-08-31 15:31 | EX.ED.DYSGE1 ---
HPI History of Present Illness Chief Complaint: Dizziness [facility] Medical History Artificial cardiac pacemaker Cardiac defibrillator in place Truncus arteriosus Home Medications ?Medication ?Instructions ?Recorded ?Last Taken ?Type warfarin 6 mg tablet (Jantoven) 6 mg PO GRANT 08/29/17 Unknown History albuterol sulfate 90 mcg/actuation 1 - 2 puff inhalation Q4H PRN PRN 11/21/18 Unknown History aerosol inhaler (Ventolin HFA) Sob &/Or Wheezing hydrochlorothiazide 12.5 mg tablet 12.5 mg PO DAILY 11/21/18 Unknown History warfarin 6 mg tablet (Jantoven) 7 mg PO MOTUWETHFRSA 11/21/18 Unknown History lorazepam 0.5 mg tablet (Ativan) 0.5 mg PO BID PRN anxiety 5 days 07/08/21 Unknown Rx #10 tabs metoprolol tartrate 50 mg tablet 50 mg BID 07/08/21 Unknown History Allergy/AdvReac Type Severity Reaction Status Date / Time acetaminophen (From Percocet) AdvReac BLURRED Verified 12/29/23 15:02 VISION AND MILKY DRAINAGE FROM EYES oxycodone HCl (From Percocet) AdvReac BLURRED Verified 12/29/23 15:02 VISION AND MILKY DRAINAGE FROM EYES Surgical History H/O aortic valve replacement Social History Smoking Status: Never smoker EXAM Physical Exam Const Vital Signs: 08/31/24 15:15 08/31/24 15:54 08/31/24 17:14 Temperature 98.1 F Temperature Source Temporal Pulse Rate 65 70 Respiratory Rate 14 13 Blood Pressure 104/64 124/70 H Blood Pressure Mean 77 88 Pulse Ox 94 97 Oxygen Delivery Method Room Air Room Air Room Air MDM MDM MDM Narrative Medical decision making narrative: HISTORY OF PRESENT ILLNESS: 24-year-old male presents with concerns for intermittent dizziness and nausea. Notes has a history of an ICD in. He further states he gets intermittent episodes of dizziness and nausea. He notes his last for several minutes. Terminating spontaneously. Not associate head motion or movement. Is not associate with exertion. He denies any geovanny chest pain, shortness of breath. Does note a cough. Notes recent viral URI symptoms including fatigue, myalgias and aforementioned cough. Denies fever. Notes some fatigue as well. Notes compliance with all medications. Denies urinary complaints. Denies syncope. REVIEW OF SYSTEMS: Pertinent positives: Dizziness, cough, nausea Pertinent negatives: Chest pain, shortness of breath, leg swelling PHYSICAL EXAM: Nursing triage notes reviewed, Vital signs reviewed Constitutional: please see mdm HENT: MMM Eyes: Pupils equal round and reactive to light, Extraocular muscles intact Neck: No stridor, no JVD, full neck ROM Lungs: Clear to auscultation, No wheezing or rales. No increased work of breathing, no conversational dyspnea, no accessory muscle use, no nasal flaring. No respiratory distress noted Heart: Regular rate and rhythm, click associated mechanical heart valve, No rubs and No gallops, 2+ distal pulses (radial, femoral, posterior tibial) in all extremities Abdomen: Soft, there is no tenderness, rigidity, rebound or guarding, no obvious peritoneal signs, no palpable pulsatile abdominal masses, no auscultated abdominal bruit : No CVAT Extremities: No edema Neuro: Alert and oriented x3, neuro exam at baseline, cranial nerves II through XII are intact. No pain with extraocular muscle movement. There is negative test of skew. 5 of 5 strength in upper and lower extremities in flexion extension. Intact sensation to light touch in upper and lower extremity dermatomes. No truncal or extremity ataxia. No dysdiadochokinesia. Normal gait. 2+ reflexes in upper and lower extremities. No meningeal signs. Negative Babinski. NIH of 0. Skin: midline sternal scars CDI MEDICAL DECISION MAKING: Chief Complaint: Dizziness, nausea External records reviewed: Reviewed prior cardiovascular testing. Reviewed Clinisync Factors affecting care: History of ICD secondary to truncus arteriosus, chemical aortic valve Social determinants of health: none History obtained from others: Grandmother Consults: [facility] Dr. Johnson?recommended transfer for admission. Also discussed with pediatric ICU doctor Dr. Mcknight who agreed to accept the patient in transfer. MDM Narrative: Patient was initially hemodynamically stable, afebrile and nontoxic-appearing. Exam unremarkable. Gave zofran for nausea I considered the following differential diagnosis: ICD/pacemaker malfunction, arrhythmia, anemia, electrolyte disturbance, pneumonia, viral URI I obtained a broad lab and imaging workup to further elucidate the etiology of the patient's complaints. ALL IMAGES (IF OBTAINED) HAVE BEEN PERSONALLY REVIEWED AND INTERPRETED BY MYSELF. EKG with ventricular paced rhythm, there is some normal sinus rhythm without escape, rate of 63, prolonged QT interval, noted left bundle branch block, no STEMI Initial troponin elevated consistent myocardial ischemia Delta troponin also elevated however downtrending slightly INR acceptable at 2.6 CBC without leukocytosis, severe anemia, no thrombocytopenia. BMP with mild hypokalemia otherwise no significant electrolyte abnormalities, no signs of metabolic acidosis or endorgan hypoperfusion. The synthesis of the patient's history, physical exam, labs images suggest myocardial ischemia. The patient's EKG does not suggest myocardial ischemia secondary to occlusive myocardial disease. Given patient's recent viral URI the concerns for pericarditis or myocarditis. Will admit to [facility] for further evaluation and treatment. The patient and/or family, caregivers express understanding. The patient and/or family, caregivers agrees with the plan. Shared decision making: I will have a discussion with the patient and or visitors regarding risk/benefits of further testing or admission. They will be made aware of of the risk/benefits inherent in this decision they will be given the opportunity to voice understanding. Total critical care time today provided was at least 35 minutes. This excludes separately billable procedures. Critical care time (if documented) is secondary to the patient having high probability of clinically significant/life threatening deterioration in the patient's condition which required my urgent intervention. Impression: 1. Dizziness 3. Nausea 3. History of truncus arteriosus 4. Cardiac defibrillator in place 5. Artificial cardiac pacemaker 6. NSTEMI Dispo: Transfer to [facility] This note was generated with [employer] dictation software. It may contain incorrect words, spelling, and punctuation that were not noted in review of the chart prior to signing. Lab Data Labs: Laboratory Results - last 24 hr 08/31/24 08/31/24 15:57 18:09 WBC 6.6 RBC 4.87 Hgb 15.0 Hct 44.8 MCV 92.0 MCH 30.8 MCHC 33.5 RDW Std Deviation 42.3 RDW Coeff of Louis 12.6 Plt Count 182 MPV 11.1 Immature Gran % (Auto) 0.200 Neut % (Auto) 71.5 H Lymph % (Auto) 18.4 L [place] % (Auto) 5.3 Eos % (Auto) 3.5 Baso % (Auto) 1.1 H Absolute Neuts (auto) 4.8 Absolute Lymphs (auto) 1.22 Nucleated RBC % 0 PT 28.0 H INR 2.6 Sodium 139 Potassium 3.4 L Chloride 103 Carbon Dioxide 29.0 Anion Gap 7 BUN 11 Creatinine 0.98 Estim Creat Clear Calc 123.51 Est GFR (MDRD) Af Amer 120 Est GFR (MDRD) Non-Af 99 BUN/Creatinine Ratio 11.2 Glucose 117 H Calcium 9.4 Troponin I High Sens 141 H* 137 H* Radiography Diagnostic Testing: Clinical Impression(s) from Imaging Studies Chest X-Ray 08/31/24 16:10 IMPRESSION: Enlarged heart. Electronically Signed: Minor Allison MD at 16:29 EST Reading Location ID and State: [facility] / [place] , Service support , Discharge Plan Triage Chief Complaint: Dizziness ED Provider: Black Becker Dx/Rx/DC Orders Clinical Impression: Non-ST elevation (NSTEMI) myocardial infarction Prescriptions: No Action warfarin [Jantoven] 6 MG tablet 6 mg PO GRANT warfarin [Jantoven] 6 MG tablet 7 mg PO MOTUWETHFRSA albuterol sulfate [Ventolin HFA] 1 INHALER inhaler 1 - 2 puff inhalation Q4H PRN PRN (Reason: Sob &/Or Wheezing) hydrochlorothiazide 12.5 MG tablet 12.5 mg PO DAILY metoprolol tartrate 50 mg tablet 50 mg BID lorazepam [Ativan] 0.5 mg tablet 0.5 mg PO BID PRN (Reason: anxiety) 5 Days Qty: 10 0RF Primary Care Provider: Colby Urbano Referrals: Colby Urbano MD [Primary Care Provider] - Print Language: Yemeni Disposition Disposition: Acute Care Hospital Discharge Location: [facility]
--- NOTE | 2024-08-31 15:44 | EKG12_ITS ---
Test Reason : DIZZY Blood Pressure : */* mmHG Vent. Rate : 63 BPM Atrial Rate : 63 BPM P-R Int : 164 ms QRS Dur : 174 ms QT Int : 470 ms P-R-T Axes : 56 -9 200 degrees QTcB Int : 480 ms Sinus rhythm with sinus arrhythmia with frequent ventricular-paced complexes Non-specific intra-ventricular conduction block Left ventricular hypertrophy with repolarization abnormality ( R in aVL ) Abnormal ECG Confirmed by RON SANDOVAL MD ([id number]), market editor RICK SALVADOR ([id number]) on 09/01/2024 8:26:14 AM Referred By: REZA/MACHELLE Confirmed By: RON SANDOVAL MD
[2024-08-31 16:09] LABS: Absolute Lymphocyte Count 1.22 X10^3/uL (0.83-4.51); Absolute Neutrophil Count 4.8 X10^3/uL (2.0-7.7); Basophil# 0.07 X10^3/uL; Basophil% 1.1 % (0-1); Eosinophil# 0.23 X10^3/uL; Eosinophils% 3.5 % (0-5); Hematocrit 44.8 % (40-54); Lymphocyte # 1.22 X10^3/ul (0.83-4.51); Lymphocyte % 18.4 % (19-41); Mean Corp Hgb Conc 33.5 g/dL (32-36); Mean Corpuscular Hgb 30.8 pg (27.0-32.0); Mean Platelet Vol. 11.1 fl (6.2-12.0); Monocyte# 0.35 X10^3/uL; Monocyte% 5.3 % (0-10); NRBC Flagged by Analyzer 0 % (0-5); Neutrophil # 4.75 X10^3/uL (2.7-7.7); Neutrophil % 71.5 % (47-70); Platelet Count 182 K/mm3 (150-450); RBC Distribution Width CV 12.6 % (11.6-14.6); RBC Distribution Width SD 42.3 fl (35.1-43.9); Red Blood Count 4.87 M/mm3 (4.6-6.2); White Blood Count 6.6 K/mm3 (4.4-11.0)
[2024-08-31] MEDS: Ondansetron 4 MG/2 ML Vial IV (16:09)
--- NOTE | 2024-08-31 16:10 | RAD_ITS ---
EXAM: XR CHEST, 1 VIEW CLINICAL INDICATION: chest pain TECHNIQUE: Frontal view of the chest. COMPARISON: 12.29.23 FINDINGS: LUNGS AND PLEURAL SPACES: Unremarkable. No effusion. No pneumothorax. HEART: Enlarged heart. MEDIASTINUM: Central airways and mediastinal contour are unremarkable. BONES/JOINTS: Unremarkable. No acute fracture. SOFT TISSUES: Unremarkable. TUBES, LINES AND DEVICES: Left-sided pacemaker battery pack. RAD/Chest 1 View (Portable) IMPRESSION: Enlarged heart. Electronically Signed: Minor Allison MD at 16:29 EST ,
[2024-08-31 16:17] LABS: International Normalized Ratio 2.6
[2024-08-31 16:37] LABS: Anion Gap 7 (5-15); BUN 11 mg/dL (7-18); BUN/Creat Ratio 11.2 RATIO (10-20); Calcium,Total 9.4 mg/dL (8.5-10.1); Chloride 103 mmol/L (98-107); Creatinine, Serum 0.98 mg/dL (0.70-1.30); EST Glomerular Filtration Rate 99 mL/min (>60); Est Glom Filt Rate - Afr Amer 120 mL/min (>60); Estimated Creatinine Clearance 123.51 ml/min; Glucose 117 mg/dL (74-106); Potassium 3.4 mmol/L (3.5-5.1); Sodium Level 139 mmol/L (136-145); Troponin-I HS (w/2H Reflex) 141 pg/mL (3.0-78.0)
[2024-08-31 17:14] VITALS: BP 124/70; PULSE 70; RESP 13; O2SAT 97
[2024-08-31 18:05] LABS: Reflex Troponin-HS? (from REC) Y
--- NOTE | 2024-08-31 18:22 | ED.RN ---
ACCEPTED @ [facility] @[id number]
--- NOTE | 2024-08-31 18:41 | ED.RN ---
This RN gave report to Ruchi at [facility] pediatric ICU
[2024-08-31 18:43] LABS: Troponin-I HS 137 pg/mL (3.0-78.0)
[2024-08-31 19:00] VITALS: BP 116/54; PULSE 64; RESP 20; O2SAT 98
[2024-08-31 19:06] VITALS: BP 116/54; PULSE 65; RESP 14; TEMP 36.7; O2SAT 99
== END 2024-08-31 19:25 | disposition short-term general hospital (02) ==
PROVIDERS: Emergency Provider Emergency Medicine; PCP Family Medicine; Visit Provider Emergency Medicine
DX: I21.4 Non-ST elevation (NSTEMI) myocardial infarction (principal); E87.6 Hypokalemia; I44.7 Left bundle-branch block, unspecified; R42 Dizziness and giddiness; R11.0 Nausea; Q20.0 Common arterial trunk; Z95.2 Presence of prosthetic heart valve; Z79.01 Long term (current) use of anticoagulants; Z95.810 Presence of automatic (implantable) cardiac defibrillator; Z79.899 Other long term (current) drug therapy
CPT/HCPCS: 71045; 80048; 84484; 85025; 85610; 87631; 93005; 96374; 99285; J2405

== ENCOUNTER 2024-09-09 12:30 | Outpatient (RCR) | payer MEDICAID, SELFPAY ==
[2024-08-09 23:27] VITALS: BMI 22.5
[2024-08-18 11:48] LABS: INR Fingerstick 1.8; Prothrombin Time Fingerstick 20.5 SEC (11.7-14.9)
[2024-09-09 12:41] LABS: INR Fingerstick 1.9; Prothrombin Time Fingerstick 21.4 SEC (11.7-14.9)
== END 2024-09-09 18:00 | disposition home or self-care (01) ==
LOC: LAB 12:30
PROVIDERS: Family Provider Pediatrics; PCP Family Medicine; Referring Provider Internal Medicine Cardiovascular Disease; Visit Provider Internal Medicine Cardiovascular Disease
DX: Z95.2 Presence of prosthetic heart valve (principal)
CPT/HCPCS: 36416; 85610

== ENCOUNTER 2024-10-07 13:09 | Outpatient (RCR) | payer MEDICAID, SELFPAY ==
[2024-09-10 04:19] VITALS: BMI 22.5
[2024-09-23 14:55] LABS: INR Fingerstick 2.6; Prothrombin Time Fingerstick 26.2 SEC (11.7-14.9)
[2024-10-07 13:30] LABS: INR Fingerstick 2.4; Prothrombin Time Fingerstick 24.9 SEC (11.7-14.9)
== END 2024-10-07 18:00 | disposition home or self-care (01) ==
LOC: LAB 13:09
PROVIDERS: Family Provider Pediatrics; PCP Family Medicine; Referring Provider Internal Medicine Cardiovascular Disease; Visit Provider Internal Medicine Cardiovascular Disease
DX: Z95.4 Presence of other heart-valve replacement (principal)
CPT/HCPCS: 36416; 85610

== ENCOUNTER → 2024-10-29 | Outpatient (CLI) | payer MEDICAID, SELFPAY ==
[2024-10-29 12:52] LABS: Anion Gap 5 (5-15); BUN 8 mg/dL (7-18); BUN/Creat Ratio 8.1 RATIO (10-20); Calcium,Total 9.6 mg/dL (8.5-10.1); Chloride 106 mmol/L (98-107); Creatinine, Serum 0.99 mg/dL (0.70-1.30); EST Glomerular Filtration Rate 98 mL/min (>60); Est Glom Filt Rate - Afr Amer 118 mL/min (>60); Glucose 97 mg/dL (74-106); Potassium 4.5 mmol/L (3.5-5.1); Sodium Level 140 mmol/L (136-145)
== END | disposition home or self-care (01) ==
LOC: LAB 12:00
PROVIDERS: PCP Family Medicine; Referring Provider Pediatrics Pediatric Nephrology; Visit Provider Pediatrics Pediatric Nephrology
DX: I10 Essential (primary) hypertension (principal)
CPT/HCPCS: 36415; 80048

== ENCOUNTER 2024-11-06 15:52 | Outpatient (RCR) | payer MEDICAID, SELFPAY ==
[2024-10-11 01:28] VITALS: BMI 22.5
[2024-10-27 07:55] LABS: Prothrombin Time Fingerstick 20.9 SEC (11.7-14.9)
[2024-11-13 10:09] LABS: INR Fingerstick 2.5; Prothrombin Time Fingerstick 26.7 SEC (11.7-14.9)
== END 2024-11-07 18:00 | disposition home or self-care (01) ==
LOC: LAB 15:52
PROVIDERS: Family Provider Pediatrics; PCP Family Medicine; Referring Provider Internal Medicine Cardiovascular Disease; Visit Provider Internal Medicine Cardiovascular Disease
DX: Z95.4 Presence of other heart-valve replacement (principal)
CPT/HCPCS: 36416; 85610

== ENCOUNTER 2024-12-05 15:47 | Outpatient (RCR) | payer MEDICAID, SELFPAY ==
[2024-11-08 04:41] VITALS: BMI 22.5
[2024-11-18 15:54] LABS: INR Fingerstick 2.5; Prothrombin Time Fingerstick 26.6 SEC (11.7-14.9)
[2024-11-28 16:12] LABS: INR Fingerstick 2.9; Prothrombin Time Fingerstick 30.2 SEC (11.7-14.9)
[2024-12-05 15:55] LABS: INR Fingerstick 2.7; Prothrombin Time Fingerstick 28.3 SEC (11.7-14.9)
== END 2024-12-05 18:00 | disposition home or self-care (01) ==
LOC: LAB 15:47
PROVIDERS: Family Provider Pediatrics; PCP Family Medicine; Referring Provider Internal Medicine Cardiovascular Disease; Visit Provider Internal Medicine Cardiovascular Disease
DX: Z95.4 Presence of other heart-valve replacement (principal)
CPT/HCPCS: 36416; 85610

== ENCOUNTER 2024-12-26 15:18 | Outpatient (RCR) | payer MEDICAID, SELFPAY ==
[2024-12-08 22:02] VITALS: BMI 22.5
[2024-12-13 10:21] LABS: INR Fingerstick 2.5; Prothrombin Time Fingerstick 26.9 SEC (11.7-14.9)
[2024-12-26 15:24] LABS: INR Fingerstick 2.9; Prothrombin Time Fingerstick 30.1 SEC (11.7-14.9)
== END 2025-01-07 18:00 | disposition home or self-care (01) ==
LOC: LAB 15:18
PROVIDERS: Family Provider Pediatrics; PCP Family Medicine; Referring Provider Internal Medicine Cardiovascular Disease; Visit Provider Internal Medicine Cardiovascular Disease
DX: Z95.2 Presence of prosthetic heart valve
CPT/HCPCS: 36416; 85610

== ENCOUNTER 2025-02-03 12:36 | Outpatient (RCR) | payer MEDICAID, SELFPAY ==
[2025-01-07 20:54] VITALS: BMI 22.5
[2025-01-20 13:13] LABS: Prothrombin Time Fingerstick 31.5 SEC (11.7-14.9)
[2025-01-27 13:16] LABS: INR Fingerstick 3.7; Prothrombin Time Fingerstick 37.7 SEC (11.7-14.9)
[2025-02-03 13:33] LABS: International Normalized Ratio 3.2; Prothrombin Time (Protime)PT. 33.4 SECONDS (11.7-14.9)
[2025-02-03 13:52] LABS: Anion Gap 10 (5-15); BUN 14 mg/dL (4-19); BUN/Creat Ratio 14.2 RATIO (10-20); Calcium,Total 9.2 mg/dL (7.6-11.0); Chloride 106 mmol/L (98-108); Creatinine, Serum 0.96 mg/dL (0.70-1.20); EST Glomerular Filtration Rate 112 (>60); Glucose 96 mg/dL (70-99); Potassium 3.8 mmol/L (3.3-5.1); Sodium Level 142 mmol/L (133-145)
== END 2025-02-03 18:00 | disposition home or self-care (01) ==
LOC: LAB 12:36
PROVIDERS: Family Provider Pediatrics; PCP Family Medicine; Referring Provider Internal Medicine Cardiovascular Disease; Visit Provider Internal Medicine Cardiovascular Disease
DX: I10 Essential (primary) hypertension
CPT/HCPCS: 36415; 36416; 80048; 85610

== ENCOUNTER 2025-02-24 12:56 | Outpatient (RCR) | payer MEDICAID, SELFPAY ==
[2025-02-07 21:00] VITALS: BMI 22.5
[2025-02-10 12:47] LABS: INR Fingerstick 2.1; Prothrombin Time Fingerstick 22.9 SEC (11.7-14.9)
[2025-02-24 16:22] LABS: INR Fingerstick 1.8
== END 2025-02-24 18:00 | disposition home or self-care (01) ==
LOC: LAB 12:56
PROVIDERS: Family Provider Pediatrics; PCP Family Medicine; Referring Provider Internal Medicine Cardiovascular Disease; Visit Provider Internal Medicine Cardiovascular Disease
DX: Z95.2 Presence of prosthetic heart valve
CPT/HCPCS: 36416; 85610

== ENCOUNTER 2025-03-10 13:27 | Outpatient (RCR) | payer MEDICAID, SELFPAY ==
[2025-03-10 13:39] LABS: INR Fingerstick 2.2
== END 2025-04-09 21:04 | disposition home or self-care (01) ==
LOC: LAB 13:27
PROVIDERS: Family Provider Pediatrics; PCP Family Medicine; Referring Provider Internal Medicine Cardiovascular Disease; Visit Provider Internal Medicine Cardiovascular Disease
DX: Z95.2 Presence of prosthetic heart valve
CPT/HCPCS: 36416; 85610